=== PATIENT | female | born 1945 | race Caucasian/White ===

== ENCOUNTER 2016-06-19 08:44 | Day surgery (SDC) | payer MEDICARE, MEDICAID ==
--- NOTE | 2016-06-12 13:03 | HISTORY AND PHYSICAL E ---
History and Physical NAME: JENNI BETTENCOURT : 1945 AGE: 70Y ADMITTED: 06/19/2016 ROOM: ADMIT DATE: 06/19/2016 ATTENDING PHYSICIAN: Dr. Samson CHIEF COMPLAINT: Patient presented for colonoscopy. HISTORY OF PRESENT ILLNESS: I saw the patient in 2005 when she did have colon exam. PAST MEDICAL HISTORY: 1. Asthma. 2. Depression. 3. High cholesterol. She did have Whipple surgery with duodenectomy. She did have ERCP. She did have upper scope 2003 showing gastric polyps. The patient did have colorectal exam. I saw her 2005 when she had colonoscopy, polyps in the right colon, sessile polyp ascending colon. She did have multiple gastric polyps. The patient was seen again in 2007. She did have colonoscopy cecum 2 mm polyp and rectal polyps. The patient did have another scope 2007 upper scope. She did have gastric polyps. Patient was seen again 2012. Again, she did have high cholesterol, and she does have gastric polyps. In 2012, upper endoscopy. The last I saw the patient was 04/23. She does have history of colorectal polyps. FAMILY HISTORY: Her father of CA of the esophagus. Her mom with ascites. She does have history of familial polyposis. ALLERGIES: She is allergic to: 1. SULFA. 2. ASPIRIN. 3. BENADRYL. CONCLUSIONS: 1. Diverticulosis. 2. Colorectal polyps. PLAN: Colonoscopy. DICTATING PHYSICIAN: ANDIE PLASCENCIA M.D. [id number] PHY#: [id number] ID: [id number] JOB#: [id number] ACCT: [id number] cc:EMIGDIO SAMSON M.D., MAHMOUD M.D. >
[~2016-06-19 08:44] MED LIST: EPINEPHRINE INJ 1 MG/10 ML DISP.SYRIN ONE; FENTANYL CITRATE INJ/PF 100 MCG/2 ML AMPUL ONE; FLUMAZENIL INJ 0.5 MG/5 ML VIAL IV ONE; GLUCAGON,HUMAN RECOMB 1 MG INJ ONE; GLYCOPYRROLATE INJ 0.4 MG/2 ML VIAL ONE; LIDOCAINE 2% JELLY 30 ML TUBE ONE; MIDAZOLAM 2 MG/2 ML INJ ONE; NALOXONE HCL INJ/PF 0.4 MG/1 ML SDV ONE; ONDANSETRON HCL INJ/PF 4 MG/2 ML SDV ONE; PROMETHAZINE HCL INJ 25 MG/1 ML VIAL ONE
[2016-06-19] MEDS ORDERED: NA PHOS,M-B/NA PHOS,DI-BA (ADULT) 133 ML ENEMA PR ONE (08:54)
[2016-06-19 10:40] LABS: ABSOLUTE LYMPHOCYTES (AUTO) 0.7 10^3/uL (0.5-4.7); ABSOLUTE MONOCYTES (AUTO) 0.5 10^3/uL (0.1-1.4); ABSOLUTE NEUT (AUTO) 5.8 10^3/uL (1.7-8.2); BASOPHILS % (AUTO) 0.4 % (0-2); EOSINOPHILS % (AUTO) 0.4 % (0-6); HEMATOCRIT 41.5 % (36.0-47.0); HGB HCT DIFFERENCE -2.5; LYMPHOCYTES % (AUTO) 10.6 % (13-45); MEAN CORPUSCULAR HEMOGLOBIN 29.6 pg (27.0-33.4); MEAN CORPUSCULAR HGB CONC 31.4 g/dL (32.0-36.0); MEAN CORPUSCULAR VOLUME 94 fl (80-97); MONOCYTES % (AUTO) 6.4 % (3-13); RED BLOOD COUNT 4.41 10^6/uL (3.72-5.28); SEGMENTED NEUTROPHILS % (AUTO) 82.2 % (42-78); WHITE BLOOD COUNT 7.1 10^3/uL (4.0-10.5)
[2016-06-19 10:55] VITALS: BP 129/51
--- NOTE | 2016-06-19 12:57 | DISCHARGE SUMMARY E ---
Discharge Summary NAME: JENNI BETTENCOURT : 1945 AGE: 70Y ADMITTED: 06/19/2016 DISCHARGED: 06/19/2016 HISTORY: A 70-year-old female with a history of partial resection of the stomach, history of gastric polyps, history of Whipple resection secondary to sessile polyps in the duodenum. Patient underwent colonoscopy today showing polyp mid ascending colon inject, resect. She did have Whipple surgery in . Today's colon shows no evidence of cancer. She did have diverticulosis, diminutive polyps rectosigmoid and sessile polyp ascending colon. DISCHARGE PLAN: Consider upper scope. Consider followup colon scope 1 year with anesthesia standby in the OR. DICTATING PHYSICIAN: ANDIE PLASCENCIA M.D. [id number] PHY#: [id number] ID: [id number] JOB#: [id number] ACCT: [id number] cc:EMIGDIO SAMSON M.D., MAHMOUD M.D. >
--- NOTE | 2016-06-19 12:59 | OPERATIVE REPORT E ---
Operative Report NAME: JENNI BETTENCOURT : 1945 AGE: 70Y DATE OF SURGERY: 06/19/2016 ROOM: PREOPERATIVE DIAGNOSES: The patient is a 70-year-old female for colon screening, history of polyps. POSTOPERATIVE DIAGNOSES: 1. Sessile, 1 cm polyp in mid ascending colon, injected and resected. 2. Diminutive polyps extra-sigmoid. 3. Mild diverticulosis. FINDINGS: The patient had adhesions, redundant colon, difficult colonoscopy. Recommend followup colonoscopy after 9 months to a year in the OR with anesthesia standby regarding redundant colon and multiple polyps. OPERATION: Colonoscopy. SURGEON: ANDIE PLASCENCIA M.D. DESCRIPTION: Rectal exam: External hemorrhoids. Rectal/sigmoid: Diminutive polyps, 2 mm, too small to biopsy. Sigmoid: 2 mm polyp, mild diverticulosis. Transverse colon: Redundant. Ascending colon: Shows sessile polyp, mid ascending, injected, resected. No tissue available. Cecum: Normal. Scope withdrawn cecum, ascending, transverse, descending, and sigmoid, all the way to the rectum. CONCLUSION: 1. Redundant colon. 2. Difficult colonoscopy. PLAN: Recommend followup colonoscopy in 1 year in the OR, anesthesia standby. DICTATING PHYSICIAN: ANDIE PLASCENCIA M.D. [id number] PHY#: [id number] ID: [id number] JOB#: [id number] ACCT: [id number] cc:EMIGDIO SAMSON M.D., MAHMOUD M.D. >
== END 2016-06-19 10:55 | disposition home or self-care (01) ==
LOC: END 08:44
PROVIDERS: ATTEND Specialist
PROC: 3E0H8GC Introduction of Other Therapeutic Substance into Lower GI, Via Natural or Artificial Opening Endoscopic (ICD-10-PCS; principal; 2016-06-19 09:00)
PROC: 0DBK8ZX Excision of Ascending Colon, Via Natural or Artificial Opening Endoscopic, Diagnostic (ICD-10-PCS; 2016-06-19 09:00)
DX: D12.7 Benign neoplasm of rectosigmoid junction (principal); D12.2 Benign neoplasm of ascending colon; K64.4 Residual hemorrhoidal skin tags; R97.8 Other abnormal tumor markers; K57.30 Diverticulosis of large intestine without perforation or abscess without bleeding; J45.909 Unspecified asthma, uncomplicated; Z80.0 Family history of malignant neoplasm of digestive organs; E78.00 Pure hypercholesterolemia, unspecified; Z88.2 Allergy status to sulfonamides; Z88.6 Allergy status to analgesic agent; Z88.8 Allergy status to other drugs, medicaments and biological substances
CPT/HCPCS: 45385; 45381; 36415; 86301; 82962; 82378; 85025; J2250; J3010; A9270; J1610; J2405; J0171; J2310; J2550; J3490

== ENCOUNTER → 2016-06-25 | Outpatient (CLI) | payer MEDICARE, MEDICAID ==
[2016-06-25 15:14] LABS: ABSOLUTE LYMPHOCYTES (AUTO) 1.2 10^3/uL (0.5-4.7); ABSOLUTE MONOCYTES (AUTO) 0.7 10^3/uL (0.1-1.4); ABSOLUTE NEUT (AUTO) 5.1 10^3/uL (1.7-8.2); BASOPHILS % (AUTO) 0.3 % (0-2); EOSINOPHILS % (AUTO) 0.5 % (0-6); HEMATOCRIT 39.3 % (36.0-47.0); HEMOGLOBIN 12.7 g/dL (12.0-15.5); HGB HCT DIFFERENCE -1.2; MEAN CORPUSCULAR HGB CONC 32.3 g/dL (32.0-36.0); MEAN CORPUSCULAR VOLUME 93 fl (80-97); MONOCYTES % (AUTO) 9.9 % (3-13); RED BLOOD COUNT 4.24 10^6/uL (3.72-5.28); SEGMENTED NEUTROPHILS % (AUTO) 72.3 % (42-78)
== END ==
LOC: OD 14:17
PROVIDERS: ATTEND Specialist
DX: R10.9 Unspecified abdominal pain (principal)
CPT/HCPCS: 36415; 74000; 85025

== ENCOUNTER 2016-07-10 09:32 | Day surgery (SDC) | payer MEDICARE, MEDICAID ==
--- NOTE | 2016-07-07 15:34 | HISTORY AND PHYSICAL E ---
History and Physical NAME: JENNI BETTENCOURT : 1945 AGE: 70Y ADMITTED: 07/10/2016 ROOM: CHIEF COMPLAINT/HISTORY: History of gastric polyps. The patient did have an upper scope, 2012, found gastric duodenal surgery, history of polyps. The patient admitted for upper endoscopy surgery. 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 PAST MEDICAL HISTORY: 1. The patient has gastric polyps. 2. She does have a history of familial polyposis. 3. She does have prominent gastric folds, benign-looking gastric polyps. PAST SURGICAL HISTORY: 1. History of Whipple surgery. 2. Gastric bypass. MEDICATIONS: Nexium. SOCIAL HISTORY: She smokes. FAMILY HISTORY: Her father of CA of the esophagus. Mom with ascites. PHYSICAL EXAMINATION: VITAL SIGNS: Blood pressure 130/70, pulse 80, respirations 20, temp is 98. HEAD, EYES, EARS, NOSE, THROAT: Normal. NECK: Supple. LUNGS: Clear. ABDOMEN: Soft. NEUROLOGIC: Exam negative. ALLERGIES: She is allergic to PENICILLIN. CONCLUSION: 1. History of colon polyps. 2. History of Whipple surgery. 3. Familial polyposis. PLAN: Upper scope. Admit 07/10 DICTATING PHYSICIAN: ANDIE PLASCENCIA M.D. [id number] [id number] [facility]#: [id number] ID: [id number] JOB#: [id number] ACCT: [id number] cc:EMIGDIO SAMSON M.D., MAHMOUD M.D. >
[~2016-07-10 09:32] MED LIST changes: -GLUCAGON,HUMAN RECOMB 1 MG INJ ONE; -LIDOCAINE 2% JELLY 30 ML TUBE ONE
[2016-07-10] MEDS ORDERED: GLUCAGON,HUMAN RECOMB 1 MG INJ ONE (10:15)
--- NOTE | 2016-07-10 11:03 | DISCHARGE SUMMARY E ---
Discharge Summary NAME: JENNI BETTENCOURT : 1945 AGE: 70Y ADMITTED: 07/10/2016 DISCHARGED: HISTORY: A 70-year-old female with a history of gastric polyps, familial polyposis, had a recent colonoscopy and she did have adenoma, polyp resected. Today's upper endoscopy shows no evidence of malignancy. No evidence of cancer. She did have prominent gastric folds and esophageal varies, mild-moderate in the mid and proximal esophagus, prominent gastric folds with marked gastritis, duodenitis. ALLERGIES: 1. PENICILLIN. 2. LITHIUM. DISCHARGE PLAN: Awaiting biopsy results, lab studies. Hold aspirin for a week. Consider followup upper endoscopy in 1 year. DICTATING PHYSICIAN: ANDIE PLASCENCIA M.D. [id number] PHY#: [id number] ID: [id number] JOB#: [id number] ACCT: [id number] cc:Nikhil ARMENTA M.D. >
[2016-07-10 11:35] VITALS: BP 129/60
[2016-07-10 11:56] LABS: ABSOLUTE BASOPHILS # (AUTO) 0.1 10^3/uL (0.0-0.2); ABSOLUTE LYMPHOCYTES (AUTO) 0.9 10^3/uL (0.5-4.7); ABSOLUTE MONOCYTES (AUTO) 0.5 10^3/uL (0.1-1.4); ABSOLUTE NEUT (AUTO) 6.7 10^3/uL (1.7-8.2); BASOPHILS % (AUTO) 0.7 % (0-2); EOSINOPHILS % (AUTO) 0.6 % (0-6); HEMATOCRIT 39.1 % (36.0-47.0); HEMOGLOBIN 13.1 g/dL (12.0-15.5); HGB HCT DIFFERENCE 0.2; LYMPHOCYTES % (AUTO) 11.4 % (13-45); MEAN CORPUSCULAR HEMOGLOBIN 30.4 pg (27.0-33.4); MEAN CORPUSCULAR HGB CONC 33.4 g/dL (32.0-36.0); MEAN CORPUSCULAR VOLUME 91 fl (80-97); MONOCYTES % (AUTO) 6.6 % (3-13); RED CELL DISTRIBUTION WIDTH 15.2 % (11.5-14.0); SEGMENTED NEUTROPHILS % (AUTO) 80.7 % (42-78); WHITE BLOOD COUNT 8.3 10^3/uL (4.0-10.5)
--- NOTE | 2016-07-10 12:08 | OPERATIVE REPORT E ---
Operative Report NAME: JENNI BETTENCOURT : 1945 AGE: 70Y DATE OF SURGERY: 07/10/2015 ROOM: PREOPERATIVE DIAGNOSES: 1. 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 2. Familial polyposis. POSTOPERATIVE DIAGNOSES: 1. History of Whipple's disease. 2. Familial polyposis. 3. History of gastric polyps. PROCEDURES: 1. Esophagoscopy. 2. Gastroscopy. 3. Duodenoscopy. SURGEON: ANDIE PLASCENCIA M.D. TISSUE REMOVED OR ALTERED: Gastric biopsy from the antrum for H. pylori. ANESTHESIA: 1. Versed 2 mg. 2. Fentanyl 50 mcg. DESCRIPTION OF PROCEDURE: Baby scope passed under guided vision, no difficulties. ESOPHAGOSCOPY: Junction at 36 cm. Mid and proximal esophagus shows mild to moderate varices. No sign of bleeding. No significant of malignancy. No sign of polyps. GASTROSCOPY: Prominent gastric folds in the fundus. Prepyloric area shows erythema and prominent folds. Biopsy obtained. DUODENOSCOPY: Duodenal bulb shows mild duodenitis. Anastomoses of the Whipple was visualized, shows no evidence of polyps or malignancy. CONCLUSION: 1. Prominent gastric folds proximally. 2. Distal gastritis. 3. 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 DISCHARGE PLAN: 1. Soft diet. 2. Hold aspirin and nonsteroidals for a week. 3. I will obtain CA 19-9, CEA, and CBC. 4. Consider followup upper endoscopy in 1 year. DICTATING PHYSICIAN: ANDIE PLASCENCIA M.D. [id number] PHY#: [id number] ID: [id number] JOB#: [id number] ACCT: [id number] cc:EMIGDIO SAMSON M.D., MAHMOUD M.D. >
== END 2016-07-10 11:50 | disposition home or self-care (01) ==
LOC: END 09:32
PROVIDERS: ATTEND Specialist
PROC: 0DB68ZX Excision of Stomach, Via Natural or Artificial Opening Endoscopic, Diagnostic (ICD-10-PCS; principal; 2016-07-10 10:00)
DX: K31.9 Disease of stomach and duodenum, unspecified (principal); K63.89 Other specified diseases of intestine; I85.00 Esophageal varices without bleeding; K29.80 Duodenitis without bleeding; R97.8 Other abnormal tumor markers; F17.210 Nicotine dependence, cigarettes, uncomplicated; Z88.0 Allergy status to penicillin; Z88.8 Allergy status to other drugs, medicaments and biological substances; Z79.899 Other long term (current) drug therapy; Z98.84 Bariatric surgery status
CPT/HCPCS: 43239; 36415; 86301; 82962; 82378; 85025; 88342 ×2; 88305 ×2; J2250; J3010; J1610; J2405; J0171; J2310; J2550; J3490

== ENCOUNTER → 2016-08-12 | Outpatient (CLI) | payer MEDICARE, MEDICAID | LOC: WI 12:48 | PROVIDERS: ATTEND Internal Medicine | DX: Z12.31 Encounter for screening mammogram for malignant neoplasm of breast (principal) | CPT/HCPCS: 77067; G0202 ==

== ENCOUNTER 2016-12-06 13:21 | Day surgery (SDC) | payer MEDICARE, MEDICAID ==
[~2016-12-06 13:21] MED LIST changes: +DEXAMETHASONE SOD PHOSPHATE INJ 4 MG/1 ML VIAL ONE; -EPINEPHRINE INJ 1 MG/10 ML DISP.SYRIN ONE; -FENTANYL CITRATE INJ/PF 100 MCG/2 ML AMPUL ONE; -FLUMAZENIL INJ 0.5 MG/5 ML VIAL IV ONE; +LIDOCAINE 2% INJ-PF (20 MG/ML) 10 ML AMPUL ONE; -MIDAZOLAM 2 MG/2 ML INJ ONE; -NALOXONE HCL INJ/PF 0.4 MG/1 ML SDV ONE; +NEOSTIGMINE METHYLSULFATE 10 MG/10 ML VIAL ONE; -ONDANSETRON HCL INJ/PF 4 MG/2 ML SDV ONE; -PROMETHAZINE HCL INJ 25 MG/1 ML VIAL ONE; +ROCURONIUM BROMIDE INJ 50 MG/5 ML VIAL IV ONE; +SUCCINYLCHOLINE CHLORIDE INJ 200 MG/10 ML VIAL ONE
--- NOTE | 2016-12-06 14:09 | ER Document Report ---
ED GI/ - General Chief Complaint: Abdominal Pain Stated Complaint: LEFT FLANK PAIN Time Seen by Provider: 12/06/16 13:54 Mode of Arrival: Ambulatory Information source: Patient TRAVEL OUTSIDE OF THE [place] IN LAST 30 DAYS: No - HPI Patient complains to provider of: Diarrhea, Other - groin pain/swelling Onset: This morning Timing/Duration: Sudden Quality of pain: Achy Severity at maximum: Moderate Severity in ED: Moderate Pain Level: 3 Location: Other - left inguinal Associated symptoms: Diarrhea Exacerbated by: Denies Relieved by: Denies Similar symptoms previously: No Recently seen / treated by doctor: No Notes: 12/06/16 16:51 71-year-old female who presents to the emergency room complaining of diarrhea that started this morning with a new swollen area in her left inguinal area that she noted shortly after having a bowel movement, it is painful, she denies any blood in her stools, no nausea or vomiting, no dysuria or hematuria, no fever, no history of similar symptoms previously - Related Data Allergies/Adverse Reactions: Penicillins Allergy (Unknown, Verified 12/06/16 13:26) lithium Adverse Reaction (Intermediate, Verified 12/06/16 13:26) vomiting, severe headach, diarrhea Home Medications: Current Home Medications Albuterol Sulfate [Ventolin HFA MDI 18 GM] 2 puff IH Q4HP PRN 12/06/16 [History] Amantadine HCl [Amantadine] 100 mg PO Q12 12/06/16 [History] Atorvastatin Calcium [Lipitor 20 mg Tablet] 20 mg PO QHS 12/06/16 [History] Canagliflozin/Metformin HCl [Invokamet 50-500 mg Tablet] 1 tab PO BIDACBS [History] Divalproex Sodium [Divalproex Sodium ER] 1,000 mg PO DAILY 12/06/16 [History] Esomeprazole Mag Trihydrate [Nexium] 40 mg PO DAILY 12/06/16 [History] Invega Sustenna 117mg/ 0.75ml 117 mg IM [id number] 12/06/16 [History] Coni Camron Mouthwash (Hydrocortisone, Lidocaine, Benadryl, Nystatin, Tetracycline) 5 ml PO QID 12/06/16 [History] Paliperidone [Invega 6 Mg Tab.Er] 6 mg PO QHS 12/06/16 [History] Ramipril [Altace 2.5 mg Capsule] 2.5 mg PO DAILY 12/06/16 [History] Sitagliptin Phosphate [Januvia 50 mg Tablet] 50 mg PO BID 12/06/16 [History] Past Medical History - General Information source: Patient - Social History Smoking Status: Current Every Day Smoker Chew tobacco use (# tins/day): No Frequency of alcohol use: None Drug Abuse: None Family History: None Patient has suicidal ideation: No Patient has homicidal ideation: No - Past Medical History Cardiac Medical History: Denies: Hx Coronary Artery Disease, Hx Heart Attack, Hx Hypertension Pulmonary Medical History: Reports: Hx Asthma Denies: Hx Bronchitis, Hx COPD, Hx Pneumonia Neurological Medical History: Denies: Hx Cerebrovascular Accident, Hx Seizures Endocrine Medical History: Reports: Hx Diabetes Mellitus Type 2 Renal/ Medical History: Denies: Hx Peritoneal Dialysis GI Medical History: Denies: Hx Hepatitis, Hx Hiatal Hernia, Hx Ulcer Musculoskeltal Medical History: Reports Hx Arthritis - HANDS AND LEGS Psychiatric Medical History: Reports: Hx Bipolar Disorder Infectious Medical History: Denies: Hx Hepatitis Past Surgical History: Reports: Hx Appendectomy, Hx Genitourinary Surgery - bladder, Hx Hysterectomy. Denies: Hx Mastectomy, Hx Open Heart Surgery, Hx Pacemaker - Immunizations Hx Diphtheria, Pertussis, Tetanus Vaccination: Yes Hx Pneumococcal Vaccination: 04/30/16 Review of Systems - Review of Systems Constitutional: No symptoms reported EENT: No symptoms reported Cardiovascular: No symptoms reported Respiratory: No symptoms reported Gastrointestinal: See HPI Genitourinary: No symptoms reported Female Genitourinary: No symptoms reported Musculoskeletal: No symptoms reported Skin: No symptoms reported Hematologic/Lymphatic: No symptoms reported Neurological/Psychological: No symptoms reported -: Yes All other systems reviewed and negative Physical Exam - Vital signs Vitals: Temp Pulse Resp BP Pulse Ox 98.4 F 85 18 133/59 H 96 12/06/16 13:26 12/06/16 13:26 12/06/16 13:26 12/06/16 13:26 12/06/16 13:26 Interpretation: Normal - General General appearance: Appears well, Alert - HEENT Head: Normocephalic, Atraumatic Eyes: Normal Pupils: PERRL - Respiratory Respiratory status: No respiratory distress Chest status: Nontender Breath sounds: Normal Chest palpation: Normal - Cardiovascular Rhythm: Regular Heart sounds: Normal auscultation Murmur: No - Abdominal Distension: No distension Bowel sounds: Normal Organomegaly: No organomegaly Notes: 5 x 8 cm area of swelling in the left inguinal crease, tender to palpate, positive bowel sounds present, nonreducible - Back Back: Normal, Nontender - Extremities General upper extremity: Normal inspection, Nontender, Normal color, Normal ROM , Normal temperature General lower extremity: Normal inspection, Nontender, Normal color, Normal ROM , Normal temperature, Normal weight bearing. No: Gloria's sign - Neurological Neuro grossly intact: Yes Cognition: Normal Orientation: AAOx4 [place] Coma Scale Eye Opening: Spontaneous [place]adira Coma Scale Verbal: Oriented [place] Coma Scale Motor: Obeys Commands Yadira Coma Scale Total: 15 Speech: Normal Motor strength normal: LUE, RUE, LLE, RLE Sensory: Normal - Psychological Associated symptoms: Normal affect, Normal mood - Skin Skin Temperature: Warm Skin Moisture: Dry Skin Color: Normal Course - Re-evaluation Re-evalutation: 12/06/16 16:52 Patient was seen and evaluated by Dr. Bermudez, general surgeon, who agrees that patient has an incarcerated inguinal hernia, he will admit patient and take to the OR for repair, this plan was discussed with patient who is in agreement as well - Vital Signs Vital signs: Temp Pulse Resp BP Pulse Ox 98 F 71 16 151/63 H 96 12/06/16 15:38 12/06/16 15:38 12/06/16 15:38 12/06/16 15:38 12/06/16 15:38 - Laboratory Result Diagrams: 12/06/16 14:36 12/06/16 14:36 Laboratory results interpreted by me: 12/06/16 12/06/16 12/06/16 14:27 14:36 14:36 RDW 14.6 H Sodium 136.5 L Glucose 139 H Urine Glucose (UA) >=500 H Urine Ketones 20 H - Diagnostic Test Radiology reviewed: Image reviewed, Reports reviewed - EKG Interpretation by Me EKG shows normal: Sinus rhythm Rate: Normal Rhythm: NSR - Consults Dr Bajwa Time consulted: 14:08 Reason for consultation: 12/06/16 14:08 left inguinal hernia Consulted provider: will come to ER - Transfer of Care Care transferred to following provider: Dr Bermudez Discharge - Discharge Clinical Impression: Incarcerated inguinal hernia, unilateral Condition: Stable Disposition: ADMITTED INPATIENT Admitting Provider: Surgicalist Unit Admitted: Surgical Floor
[2016-12-06 15:00] LABS: ABSOLUTE BASOPHILS # (AUTO) 0.1 10^3/uL (0.0-0.2); ABSOLUTE LYMPHOCYTES (AUTO) 1.4 10^3/uL (0.5-4.7); ABSOLUTE MONOCYTES (AUTO) 0.6 10^3/uL (0.1-1.4); ABSOLUTE NEUT (AUTO) 5.1 10^3/uL (1.7-8.2); BASOPHILS % (AUTO) 0.7 % (0-2); EOSINOPHILS % (AUTO) 0.6 % (0-6); HEMOGLOBIN 13.7 g/dL (12.0-15.5); HGB HCT DIFFERENCE 0.1; LYMPHOCYTES % (AUTO) 19.9 % (13-45); MEAN CORPUSCULAR HEMOGLOBIN 31.1 pg (27.0-33.4); MEAN CORPUSCULAR HGB CONC 33.4 g/dL (32.0-36.0); MEAN CORPUSCULAR VOLUME 93 fl (80-97); MONOCYTES % (AUTO) 8.3 % (3-13); RED BLOOD COUNT 4.41 10^6/uL (3.72-5.28); RED CELL DISTRIBUTION WIDTH 14.6 % (11.5-14.0); SEGMENTED NEUTROPHILS % (AUTO) 70.5 % (42-78); WHITE BLOOD COUNT 7.2 10^3/uL (4.0-10.5)
[2016-12-06 15:00] LABS: APPEARANCE,URINE CLEAR; BILIRUBIN,URINE NEGATIVE (NEGATIVE); GLUCOSE, URINE >=500 mg/dL (NEGATIVE); KETONES,URINE 20 mg/dL (NEGATIVE); LEUKOCYTE ESTERASE,URINE NEGATIVE (NEGATIVE); NITRITE,URINE NEGATIVE (NEGATIVE); PROTEIN,URINE NEGATIVE (NEGATIVE); UROBILINOGEN,URINE NEGATIVE mg/dL (<2.0)
[2016-12-06 15:04] LABS: PROTHROMBIN TIME 12.9 SEC (11.4-15.4)
[2016-12-06 15:05] LABS: PARTIAL THROMBOPLASTIN TIME 29.7 SEC (23.5-35.8)
[2016-12-06 15:15] LABS: ALANINE AMINOTRANSFERASE 25 U/L (9-52); ALBUMIN 4.2 g/dL (3.5-5.0); ALKALINE PHOSPHATASE 70 U/L (38-126); ANION GAP 11 (5-19); ASPARTATE AMINO TRANSFERASE 21 U/L (14-36); BILIRUBIN,DIRECT 0.3 mg/dL (0.0-0.4); BILIRUBIN,TOTAL 0.5 mg/dL (0.2-1.3); BLOOD UREA NITROGEN 19 mg/dL (7-20); CALCIUM 9.5 mg/dL (8.4-10.2); CARBON DIOXIDE 27 mmol/L (22-30); CHLORIDE 99 mmol/L (98-107); CREATININE RESULT 0.55 mg/dL (0.52-1.25); GLUCOSE 139 mg/dL (75-110); POTASSIUM 4.2 mmol/L (3.6-5.0); SODIUM 136.5 mmol/L (137-145); TOTAL PROTEIN 7.3 g/dL (6.3-8.2)
--- NOTE | 2016-12-06 15:43 | HISTORY AND PHYSICAL E ---
History and Physical NAME: JENNI BETTENCOURT : 1945 AGE: 71Y ADMITTED: 12/06/2016 ROOM: ED08 CHIEF COMPLAINT: Abdominal pains with a lump in the left groin. HISTORY OF PRESENT ILLNESS: This is a 71-year-old female who had diarrhea after lunch and then noted a pop in the left groin. She went to the emergency room and noted to have a left inguinal hernia which the patient said she never had it before. She does not have pain in the groin unless pressure is applied. The ER doctor, *------*, tried to reduce it but was unable to do so. I also tried to reduce it in the ER, again unable to reduce it. PAST MEDICAL HISTORY: 1. History of Whipple procedure around 20 years ago in [facility] which she survived until now. 2. She also had a hysterectomy. 3. History of depression and takes medications prescribed by a psychiatrist. 4. She is a diabetic. ALLERGIES: None known. SOCIAL HISTORY: Denies smoking or drinking or drug use. REVIEW OF SYSTEMS: As in HPI. Complaining of some abdominal discomfort, more of like gurgling sounds. Tenderness in the left groin on attempting to reduce the hernia. She denies any nausea or vomiting. Positive diarrhea. However, she usually takes a laxative because of constipation. Denies any chest pain, shortness of breath, nor dysuria. Rest of the systems reviewed and unremarkable. FAMILY HISTORY: Noncontributory. PHYSICAL EXAMINATION: GENERAL: Well-developed, well-nourished, 71-year-old female, alert, oriented with no left groin pain unless it is touched. HEENT: Neck is supple. No thyromegaly. LUNGS: Clear. HEART: Regular sinus rhythm. ABDOMEN: Soft and nontender. GROIN: In the groin, there is a lump on the left groin that I am not able to reduce. IMPRESSION: Incarcerated left inguinal hernia. PLAN: 1. Keep her NPO and hydrate. 2. To OR for reduction and repair of the hernia with possible use of mesh and possible bowel resection. DICTATING PHYSICIAN: JOSE L GUERIN M.D. [id number] PHY#: [id number] ID: [id number] JOB#: [id number] ACCT: [id number] cc:JOSE L GUERIN M.D. >
--- NOTE | 2016-12-06 15:53 | RADIOLOGY REPORT (SQ) ---
EXAM DESCRIPTION: ACUTE ABDOMEN SERIES COMPLETED DATE/TIME: 12/06/2016 3:39 pm REASON FOR STUDY: pain COMPARISON: None. NUMBER OF VIEWS: Three views. TECHNIQUE: PA chest, supine abdomen and upright/decubitus abdomen radiographic images acquired. LIMITATIONS: None. FINDINGS: CHEST: Lungs clear of infiltrates. FREE AIR: None. No abnormal gas collections. BOWEL GAS PATTERN: Few scattered small bowel loops with air fluid levels. No distended large or small bowel loops. CALCIFICATIONS: No suspicious calcifications. HARDWARE: None in the abdomen. SOFT TISSUES: No gross mass or suggestion of organomegaly. BONES: No acute fracture. No worrisome bone lesions. OTHER: No other significant finding. IMPRESSION: NONSPECIFIC BOWEL GAS PATTERN WITHOUT EVIDENCE FOR OBSTRUCTION. TECHNICAL DOCUMENTATION: JOB ID: [id number] [employer]- All Rights Reserved
[2016-12-06] MEDS ORDERED: HYDROMORPHONE HCL INJ/PF 2 MG/ML AMPULE ONE (15:54)
[2016-12-06] MEDS ORDERED: MIDAZOLAM 2 MG/2 ML INJ ONE (15:54)
[2016-12-06] MEDS ORDERED: FENTANYL CITRATE INJ/PF 100 MCG/2 ML AMPUL ONE (15:54)
[2016-12-06] MEDS ORDERED: ACETAMINOPHEN 100 ML IV ONE (15:55)
[2016-12-06] MEDS ORDERED: PROPOFOL INJ 200 MG/20 ML VIAL IV ONE (15:55)
[2016-12-06] MEDS ORDERED: CEFAZOLIN INJ 1 GM VIAL ONE (16:06)
--- NOTE | 2016-12-06 16:35 | EKG REPORT ---
SEVERITY:- ABNORMAL ECG - SINUS RHYTHM CONSIDER ANTEROSEPTAL INFARCT : Confirmed by: Terri Askew 06-Dec-2016 16:35:13
[2016-12-06] MEDS ORDERED: OXYCODONE-ACETAMINOPHEN 5-325 MG TABLET PO PRN (16:56)
[2016-12-06] MEDS ORDERED: MORPHINE SULFATE 10 MG/ML INJ IV PRN ×2 (16:56→17:45)
[2016-12-06] MEDS ORDERED: PROMETHAZINE HCL INJ 25 MG/1 ML VIAL IV PRN (16:56)
[2016-12-06] MEDS ORDERED: DIPHENHYDRAMINE HCL 50 MG/ML VIAL IV PRN (16:56)
[2016-12-06] MEDS ORDERED: FENTANYL CITRATE INJ/PF 100 MCG/2 ML AMPUL IV PRN ×3 (16:56)
[2016-12-06] MEDS ORDERED: MEPERIDINE HCL/PF INJ 25 MG/1 ML DISP.SYRIN IV PRN (16:56)
[2016-12-06] MEDS ORDERED: NALOXONE HCL INJ/PF 0.4 MG/1 ML SDV ONE (17:03)
[2016-12-06] MEDS ORDERED: MORPHINE SULFATE 10 MG/ML INJ INJ ONE (17:20)
[2016-12-06] MEDS ORDERED: ONDANSETRON HCL INJ/PF 4 MG/2 ML SDV ONE (17:28)
[2016-12-06] MEDS ORDERED: MORPHINE SULFATE 10 MG/ML INJ ONE (17:28)
[2016-12-06] MEDS ORDERED: ALBUTEROL SULFATE HFA (90 MCG/PUFF) 200 PUFF/8.5 GM MDI IH PRN (17:49)
[2016-12-06] MEDS ORDERED: INVEGA SUSTENNA IM SCH (18:00)
[2016-12-06] MEDS: NYSTATIN/DEXAMETH/DIPHEN SUSP 120 ML PO SCH ×2 (20:04→21:59)
[2016-12-06] MEDS ORDERED: DEXTROSE 40% GEL 15 GM TUBE X 2 PO PRN (21:35)
[2016-12-06] MEDS ORDERED: DEXTROSE 40% GEL 15 GM TUBE PO PRN (21:35)
[2016-12-06] MEDS ORDERED: DEXTROSE 50%-WATER SYRINGE 12.5 GM/25 ML DOSE IV PRN (21:35)
[2016-12-06] MEDS ORDERED: DEXTROSE 50%-WATER SYRINGE 25 GM/50 ML DOSE IV PRN (21:35)
[2016-12-06] MEDS ORDERED: INSULIN LISPRO 100 UNIT/ML 3 ML VIAL SUBCUT PRN (21:35)
[2016-12-06] MEDS ORDERED: GLUCAGON,HUMAN RECOMB 1 MG INJ IM PRN (21:35)
[2016-12-06] MEDS: ONDANSETRON HCL INJ/PF 4 MG/2 ML SDV IV PRN (21:56)
[2016-12-06] MEDS ORDERED: PALIPERIDONE 6 MG TAB.ER.24 PO SCH (22:00)
[2016-12-06] MEDS ORDERED: ATORVASTATIN CALCIUM 20 MG TABLET PO SCH (22:00)
[2016-12-06] MEDS ORDERED: AMANTADINE HCL 100 MG CAPSULE PO ONE (22:12)
[2016-12-06] MEDS ORDERED: PALIPERIDONE 6 MG TAB.ER.24 PO ONE (22:12)
[2016-12-06] MEDS: AMANTADINE HCL 100 MG CAPSULE PO SCH (22:21)
[2016-12-06] MEDS: OXYCODONE-ACETAMINOPHEN 5-325 MG TABLET PO PRN (22:58)
[2016-12-06] MEDS: CEFAZOLIN 1 GM/D5W RTU 1 GM/50 ML RTUPB IV SCH (23:01)
[2016-12-07] MEDS: OXYCODONE-ACETAMINOPHEN 5-325 MG TABLET PO PRN ×2 (03:30→09:46)
[2016-12-07] MEDS: ONDANSETRON HCL INJ/PF 4 MG/2 ML SDV IV PRN (04:34)
[2016-12-07] MEDS ORDERED: METFORMIN HCL PO SCH (08:00)
[2016-12-07] MEDS ORDERED: CANAGLIFLOZIN PO SCH (08:00)
[2016-12-07] MEDS ORDERED: SITAGLIPTIN PHOSPHATE 50 MG TABLET PO SCH (08:00)
[2016-12-07] MEDS ORDERED: LANSOPRAZOLE 30 MG TAB.RAP.DR PO SCH (08:00)
[2016-12-07 08:40] VITALS: BP 115/55
[2016-12-07] MEDS: NYSTATIN/DEXAMETH/DIPHEN SUSP 120 ML PO SCH (09:43)
[2016-12-07] MEDS: AMANTADINE HCL 100 MG CAPSULE PO SCH (09:45)
[2016-12-07] MEDS: CEFAZOLIN 1 GM/D5W RTU 1 GM/50 ML RTUPB IV SCH (09:48)
[2016-12-07] MEDS ORDERED: RAMIPRIL 2.5 MG CAPSULE PO SCH (10:00)
--- NOTE | 2016-12-07 10:03 | OPERATIVE REPORT E ---
Operative Report NAME: JENNI BETTENCOURT : 1945 AGE: 71Y DATE OF SURGERY: 12/06/2016 ROOM: 406 PREOPERATIVE DIAGNOSIS: Incarcerated left inguinal hernia. POSTOPERATIVE DIAGNOSIS: Incarcerated left femoral hernia. OPERATION: Reduction of incarcerated left femoral hernia and repair with mesh plug. SURGEON: JOSE L GUERIN M.D. ANESTHESIA: General. INDICATION: This is a 71-year-old female who noted lump in the left groin around noontime after having a bowel movement. She claimed it was diarrhea but she said she strained. She never had this before. DESCRIPTION OF PROCEDURE: After adequate general anesthesia, the left groin and lower abdomen were prepped and draped in the usual sterile fashion. A left inguinal incision made just above the palpated lump. The subcu was then dissected with cautery and sack was then identified. This was then dissected down to the defect. The defect appears to be just below the inguinal ligament. The defect was just over 1 cm and it needed to be enlarged laterally by dividing the fascia just below the inguinal ligament to about 0.5 cm. The hernia sac which was dusky was then opened and there was primarily omentum underneath and a piece of small bowel that looked viable. DICTATION ENDS HERE DICTATING PHYSICIAN: JOSE L GUERIN M.D. [id number] PHY#: [id number] ID: [id number] JOB#: [id number] ACCT: [id number] cc:JOSE L GUERIN M.D. >
[2016-12-07] MEDS ORDERED: DIVALPROEX SODIUM 500 MG TAB.SR.24H PO SCH (11:00)
--- NOTE | 2017-01-07 12:32 | DISCHARGE SUMMARY E ---
Discharge Summary NAME: JENNI BETTENCOURT : 1945 AGE: 71Y ADMITTED: 12/06/2016 DISCHARGED: 12/07/2016 FINAL DIAGNOSIS: Incarcerated left femoral hernia. PROCEDURE DONE: Reduction of incarcerated left femoral hernia and repair with mesh plug on 12/06/[address] Bermudez. HOSPITAL COURSE: This is a 71-year-old female who noted a lump in the left groin several hours prior to coming to the emergency room on 12/06/2016. She was noted to have an incarcerated left femoral hernia that was unable to be reduced in the emergency room. She then underwent a repair of femoral hernia with mesh plug and reduction of the incarcerated hernia on 12/06/2016. Postoperatively, patient did well and discharged improve on 12/07/2016 with above final diagnosis. Patient advised not to do any lifting more than 10 pounds for the next 2 weeks or until seen in the surgical clinic in about 2 weeks. She can have regular diet. Prescription for pain medication was given. DICTATING PHYSICIAN: JOSE L BERMUDEZ M.D. [id number] PHY#: [id number] ID: [id number] JOB#: [id number] ACCT: [id number] cc:JOSE L BERMUDEZ M.D. >
== END 2016-12-07 10:15 | disposition home or self-care (01) ==
LOC: ER 13:21 → EH 15:07 → UNDOADMIN 15:07 → 4N 18:17 → EH 18:17 → OROUT 18:29 → UNDOADMIN 18:29 → 4N 18:29 → EH 18:29 → 4N 18:29 → UNDODISIN 12-07 10:15 → OROUT 12-07 10:15
PROVIDERS: ATTEND Surgery
PROC: 0YU60JZ Supplement Left Inguinal Region with Synthetic Substitute, Open Approach (ICD-10-PCS; principal; 2016-12-06 15:45)
DX: K40.30 Unilateral inguinal hernia, with obstruction, without gangrene, not specified as recurrent (principal); F32.9 Major depressive disorder, single episode, unspecified; E11.9 Type 2 diabetes mellitus without complications; J45.909 Unspecified asthma, uncomplicated; I25.10 Atherosclerotic heart disease of native coronary artery without angina pectoris; M19.90 Unspecified osteoarthritis, unspecified site; F17.210 Nicotine dependence, cigarettes, uncomplicated; Z79.899 Other long term (current) drug therapy; Z90.710 Acquired absence of both cervix and uterus
CPT/HCPCS: 93005; 99285; 36415; 87086; 82962 ×2; 85025; 85610; 85730; 80053; 81001; 88302 ×2; 74022; 93010; 49507; C1781; A9270 ×8; J2250; J0690 ×2; J3490 ×2; J1100; J3010; J2270; J1170; J0330; J2405 ×2; J2704; J0131; 830; J2310

== ENCOUNTER → 2017-07-15 | Outpatient (CLI) | payer MEDICARE, MEDICAID ==
--- NOTE | 2017-07-16 18:13 | WOMENS IMAGING REPORT ---
EXAM DESCRIPTION: 3D SCREENING MAMMO BILAT COMPLETED DATE/TIME: 07/15/2017 1:39 pm REASON FOR STUDY: ROUTINE SCREENING;Z12.31 Z12.31 ENCNTR SCREEN MAMMOGRAM FOR MALIGNANT NEOPLASM OF VIRGILIO COMPARISON: Multiple since 2008 TECHNIQUE: Standard craniocaudal and mediolateral oblique views of each breast recorded using digita l acquisition and breast tomosynthesis. LIMITATIONS: None. FINDINGS: Findings present which are benign by mammographic criteria. No suspicious masses, calcifi cations or architectural distortion. Pertinent benign findings: Stable benign bilateral breast parenchymal calcifications. Right and left breast stereotactic biopsy clips are present Read with the assistance of CAD. .[facility] - R2 Cenova Version 1.3 .[facility] - R2 Cenova Version 1.3 .[facility] - R2 Cenova Version 2.4 .[facility] [place] R2 Cenova Version 2.4 .[facility] - R2 Notching Machine Operator Version 9.2 Benign mammographic findings may include one or more of the following: Smooth masses, popcorn/rim/co arse calcifications, asymmetries, post-procedure changes, and lesions with long-standing stability. IMPRESSION: BENIGN MAMMOGRAPHIC FINDINGS. BIRADS 2 BREAST DENSITY: b. There are scattered areas of fibroglandular density. BIRAD: 2 BENIGN FINDING(S) RECOMMENDATION: RECOMMENDATION: ROUTINE SCREENING Please continue bilateral screening tomosynthesis in July 2018 COMMENT: The patient has been notified of the results by letter per MQSA requirements. Additional no tification policies are in place for contacting patient with suspicious or incomplete findings. Quality ID #225: The [employer] recommends an annual screening mammogram for women aged 40 years or over. This facility utilizes a reminder system to ensure that all patients receive reminder letters, and/or direct phone calls for appointments. This includes reminders for routine scr eening mammograms, diagnostic mammograms, or other Breast Imaging Interventions when appropriate. Th is patient will be placed in the appropriate reminder system. The [employer] (ACR) has developed recommendations for screening MRI of the breast s in certain patient populations, to be used in conjunction with mammography. Breast MRI surveillanc e may be appropriate for women with more than 20% lifetime risk of developing breast cancer as deter mined by genetic testing, significant family history of the disease, or history of mantle radiation f or Hodgkins Disease. ACR Practice Guidelines 2008. DBT Technology DBT is a type of tomographic mammography. With conventional mammography, overlapping breast tissue ma y make lesions difficult to detect, even with good compression. DBT uses an x-ray tube that rotates a round the breast, taking images at different angles. These images are then combined to create thin sl ices of the breast that the radiologist can view as a 3D reconstruction. The Hologic unit can perform full-field digital mammograms (2D imaging); or DBT (3D imaging); or both, in a combination mode that quickly performs both the mammogram and the tomosynthesis scan while the breast is still compressed. PQRS 6045F: Fluoroscopic imaging is not utilized for breast tomosynthesis. TECHNICAL DOCUMENTATION: FINDING NUMBER: (1) ASSESSMENT: (1) JOB ID: [id number] [employer]- All Rights Reserved
== END ==
LOC: WI 13:11
PROVIDERS: ATTEND Internal Medicine
DX: Z12.31 Encounter for screening mammogram for malignant neoplasm of breast (principal)
CPT/HCPCS: 77063; 77067

== ENCOUNTER → 2017-09-01 | Outpatient (CLI) | payer MEDICARE, MEDICAID ==
--- NOTE | 2017-09-01 14:37 | RADIOLOGY REPORT (SQ) ---
EXAM DESCRIPTION: CT LUNG CANCER SCREENING COMPLETED DATE/TIME: 09/01/2017 1:54 pm REASON FOR STUDY: NICOTINE DEPENDENCE (F17.210) F17.210 NICOTINE DEPENDENCE, CIGARETTES, UNCOMPLICA JULIO CÉSAR Has the patient had a Chest CT scan within the past year? No Was the patient offered tobacco cessation counseling? Yes Was the patient engaged in shared decision making for this test? Yes Does the patient have signs or symptoms of Lung Cancer? No Is the patient a smoker? Yes How many packs per year? 365 How many years since quitting smoking? No Patients age: 71 COMPARISON: None. TECHNIQUE: Low Dose CT scan performed of the chest without intravenous contrast for purposes of scre ening for lung cancer. Images reviewed with lung, soft tissue and bone windows. Reconstructed coron al and sagittal MPR images reviewed. All images stored on PACS. All CT scanners at this facility use dose modulation, iterative reconstruction, and/or weight based d osing when appropriate to reduce radiation dose to as low as reasonably achievable (ALARA). [facility]: Dose Right [facility]: CareDose [facility]: Dose Right [facility]: Teradose 4D [facility]: [employer] RADIATION DOSE: CT Rad equipment meets quality standard of care and radiation dose reduction techniq ues were employed. CTDIvol: 1.9 mGy. DLP: 69 mGy-cm. mGy. . LIMITATIONS: No technical limitations. FINDINGS: LUNG NODULES: Description: 4 mm smooth round noncalcified nodule, just above the right h emidiaphragm on axial image 335/469. This most likely represents a noncalcified granuloma. Calcified benign granulomas at the right and left lung apices less than 3 mm in diameter, benign REMAINING LUNGS AND PLEURA: No pleural effusions or calcifications. No pneumothorax. No scarrin g or interstitial changes. HILAR AND MEDIASTINAL STRUCTURES: No identified masses. No abnormal nodes. HEART AND VASCULAR STRUCTURES: No aortic aneurysm. No pericardial effusion. Heavily calcified akosua l annulus. Moderate aortic valve calcification No cardiac devices. CORONARY ARTERY CALCIFICATIONS: Marked calcifications. UPPER ABDOMEN, THYROID, BONES, OTHER SOFT TISSUES: No significant findings. IMPRESSION: BENIGN FINDINGS IN THE LUNGS. Coronary artery calcifications. Calcified aortic valve and mitral annulus LUNGRADS: LUNGRADS: 2 BENIGN APPEARANCE OR BEHAVIOR. NODULES WITH A VERY LOW LIKELIHOOD OF BECOMING A CLINICALLY ACTIVE CANCER DUE TO SIZE OR LACK OF GROWTH. MODIFIER: NONE. RECOMMENDATION: Continue annual screening with LDCT in 12 months. COMMENT: CRITERIA: Solid nodule(s): < 6 mm; new < 4 mm. Part solid nodule(s): < 6 mm total diameter on baseline screening. Non solid nodule(s) (GGN): < 20 mm OR ? 20 and unchanged or slowly growing. Category 3 or 4 modules unchanged for ? 3 months. TECHNICAL DOCUMENTATION: JOB ID: [id number] Quality ID # [id number]: Final reports with documentation of one or more dose reduction techniques (e.g., Au tomated exposure control, adjustment of the mA and/or kV according to patient size, use of iterative reconstruction technique) 2010 [facility] Radiology Reading location - IP/workstation name: [email or web address]
== END ==
LOC: RAD 12:57
PROVIDERS: ATTEND Internal Medicine
DX: F17.210 Nicotine dependence, cigarettes, uncomplicated (principal)
CPT/HCPCS: G0297

== ENCOUNTER → 2018-04-22 | Outpatient (CLI) | payer MEDICARE, MEDICAID ==
--- NOTE | 2018-04-22 16:38 | RADIOLOGY REPORT (SQ) ---
EXAM DESCRIPTION: CT SOFT TISSUE NECK WITHOUT COMPLETED DATE/TIME: 04/22/2018 9:16 am REASON FOR STUDY: R22.1 LOCALIZED SWELLING, MASS AND LUMP, NECK R22.1 LOCALIZED SWELLING, MASS AND LUMP, NECK COMPARISON: None. TECHNIQUE: Noncontrast scanning from skull base through lung apices with review of bone, soft tissue and lung windows. Reconstructed coronal and sagittal MPR images reviewed. All images stored on PAC S. All CT scanners at this facility use dose modulation, iterative reconstruction, and/or weight based d osing when appropriate to reduce radiation dose to as low as reasonably achievable (ALARA). [facility]: Dose Right [facility]: CareDose [facility]: Dose Right [facility]: Teradose 4D [facility]: [employer] RADIATION DOSE: CT Rad equipment meets quality standard of care and radiation dose reduction techniq ues were employed. CTDIvol: 7.1 mGy. DLP: 215 mGy-cm. mGy. LIMITATIONS: None. FINDINGS: SKULL BASE: Intact. MAJOR SALIVARY GLANDS: No solid or cystic masses. No inflammatory changes. LYMPHADENOPATHY: No adenopathy. MUCOSAL MASSES OR ASYMMETRY: No mucosal masses or asymmetry. LARYNX/CORDS: No abnormal findings. LUNG APICES: Clear. BONES: Intact. THYROID: Normal size. No masses. PARANASAL SINUSES: Clear. OTHER: Surrounded in the left external auditory canal. Right external auditory canal unremarkable. Bilateral middle ear cavities and mastoids are clear. IMPRESSION: NO SIGNIFICANT FINDING IN THE SOFT TISSUES OF THE NECK. TECHNICAL DOCUMENTATION: JOB ID: [id number] Quality ID # [id number]: Final reports with documentation of one or more dose reduction techniques (e.g., Au tomated exposure control, adjustment of the mA and/or kV according to patient size, use of iterative reconstruction technique) 2010 [employer]- All Rights Reserved Reading location - IP/workstation name: [email or web address]
== END ==
LOC: RAD 08:46
PROVIDERS: ATTEND Internal Medicine
DX: R22.1 Localized swelling, mass and lump, neck (principal)
CPT/HCPCS: 70490

== ENCOUNTER 2018-07-01 14:34 | Inpatient (IN) | payer MEDICARE, MEDICAID ==
[2018-07-01] MEDS ORDERED: ASPIRIN 81 MG TABLET, CHEWABLE PO ONE (17:14)
[2018-07-01] MEDS ORDERED: CLOPIDOGREL BISULFATE 300 MG TABLET PO ONE (17:15)
[2018-07-01] MEDS ORDERED: NITROGLYCERIN/D5W 50 MG/250 ML RTUINJ IV PRN (17:16)
--- NOTE | 2018-07-01 17:22 | ER Document Report ---
HPI - HPI Patient complains to provider of: chest pain Pain Level: 2 Context: Pt. presents to the ED for a direct admit from Dr. Armenta for chest pain rule out. Pt. is currently having CP which started this morning. She presented to Dr. Clemente office who sent her to the ED with direct admit orders. PMH: DM, hyperlypidemia, HTN Meds: unknown Allergies: PCN, lithium - REPRODUCTIVE Reproductive: DENIES: : Past Medical History - General Information source: Patient, DrArthur Office - Social History Smoking Status: Unknown if Ever Smoked Family History: None Patient has suicidal ideation: No Patient has homicidal ideation: No - Past Medical History Cardiac Medical History: Denies: Hx Coronary Artery Disease, Hx Heart Attack, Hx Hypertension Pulmonary Medical History: Reports: Hx Asthma Denies: Hx Bronchitis, Hx COPD, Hx Pneumonia Neurological Medical History: Denies: Hx Cerebrovascular Accident, Hx Seizures Endocrine Medical History: Reports: Hx Diabetes Mellitus Type 2 Renal/ Medical History: Denies: Hx Peritoneal Dialysis GI Medical History: Denies: Hx Hepatitis, Hx Hiatal Hernia, Hx Ulcer Musculoskeletal Medical History: Reports Hx Arthritis - HANDS AND LEGS Psychiatric Medical History: Reports: Hx Bipolar Disorder, Hx Depression Infectious Medical History: Denies: Hx Hepatitis Past Surgical History: Reports: Hx Appendectomy, Hx Genitourinary Surgery - bladder, Hx Hysterectomy. Denies: Hx Mastectomy, Hx Open Heart Surgery, Hx Pacemaker - Immunizations Hx Diphtheria, Pertussis, Tetanus Vaccination: Yes Hx Pneumococcal Vaccination: 04/30/16 Vertical Provider Document - CONSTITUTIONAL Agree With Documented VS: Yes - INFECTION CONTROL TRAVEL OUTSIDE OF THE [place] IN LAST 30 DAYS: No Course - Re-evaluation Re-evalutation: 07/01/18 17:21 Pt. is currently having CP, discussed this with Dr. Armenta who requests a Nitro drip. Orders placed. Pt. is non-toxic, VSS, sitting with family, waiting for an admission room. - Vital Signs Vital signs: Temp Pulse Resp BP Pulse Ox 98.6 F 89 22 H 122/44 L 96 07/01/18 15:02 07/01/18 15:02 07/01/18 15:02 07/01/18 15:02 07/01/18 15:02 Discharge - Discharge Clinical Impression: Chest pain Qualifiers: Chest pain type: unspecified Qualified Code(s): R07.9 - Chest pain, unspecified Condition: Stable Disposition: ADMITTED INPATIENT Admitting Provider: [facility] Admitted: [facility]
[2018-07-01 18:03] LABS: ABSOLUTE BASOPHILS # (AUTO) 0.1 10^3/uL (0.0-0.2); ABSOLUTE EOSINOPHILS # (AUTO) 0.1 10^3/uL (0.0-0.6); ABSOLUTE LYMPHOCYTES (AUTO) 1.3 10^3/uL (0.5-4.7); ABSOLUTE MONOCYTES (AUTO) 0.7 10^3/uL (0.1-1.4); ABSOLUTE NEUT (AUTO) 4.2 10^3/uL (1.7-8.2); BASOPHILS % (AUTO) 0.8 % (0-2); EOSINOPHILS % (AUTO) 0.9 % (0-6); HEMATOCRIT 37.5 % (36.0-47.0); HEMOGLOBIN 12.9 g/dL (12.0-15.5); LYMPHOCYTES % (AUTO) 20.7 % (13-45); MEAN CORPUSCULAR HEMOGLOBIN 31.6 pg (27.0-33.4); MEAN CORPUSCULAR HGB CONC 34.4 g/dL (32.0-36.0); MEAN CORPUSCULAR VOLUME 92 fl (80-97); MONOCYTES % (AUTO) 11.3 % (3-13); PLATELET COUNT 309 10^3/uL (150-450); RED BLOOD COUNT 4.08 10^6/uL (3.72-5.28); RED CELL DISTRIBUTION WIDTH 13.9 % (11.5-14.0); SEGMENTED NEUTROPHILS % (AUTO) 66.3 % (42-78); TOTAL CELLS COUNTED % (AUTO) 100 %; WHITE BLOOD COUNT 6.4 10^3/uL (4.0-10.5)
[2018-07-01 18:14] LABS: INTERNATIONAL RATION (INR) 0.95; PROTHROMBIN TIME 13.1 SEC (11.4-15.4)
[2018-07-01 18:17] LABS: D-DIMER 0.55 ug/mL (0.00-0.50)
[2018-07-01 18:38] LABS: CREATINE KINASE MB 1.26 ng/mL (<4.55)
[2018-07-01 18:40] LABS: TROPONIN I < 0.012 ng/mL
[2018-07-01 18:54] LABS: ALANINE AMINOTRANSFERASE 8 U/L (9-52); ALBUMIN 3.9 g/dL (3.5-5.0); ALKALINE PHOSPHATASE 81 U/L (38-126); ANION GAP 10 (5-19); ASPARTATE AMINO TRANSFERASE 23 U/L (14-36); BILIRUBIN,DIRECT 0.3 mg/dL (0.0-0.4); BILIRUBIN,TOTAL 0.3 mg/dL (0.2-1.3); BLOOD UREA NITROGEN 20 mg/dL (7-20); CALCIUM 9.4 mg/dL (8.4-10.2); CARBON DIOXIDE 27 mmol/L (22-30); CHLORIDE 103 mmol/L (98-107); CREATINE KINASE 41 U/L (30-135); GLUCOSE 194 mg/dL (75-110); POTASSIUM 4.1 mmol/L (3.6-5.0); TOTAL PROTEIN 6.8 g/dL (6.3-8.2)
--- NOTE | 2018-07-01 19:04 | RADIOLOGY REPORT (SQ) ---
EXAM DESCRIPTION: CHEST SINGLE VIEW COMPLETED DATE/TIME: 07/01/2018 6:17 pm REASON FOR STUDY: CP COMPARISON: 08/08/2007 EXAM PARAMETERS: NUMBER OF VIEWS: One view. TECHNIQUE: Single frontal radiographic view of the chest acquired. RADIATION DOSE: NA LIMITATIONS: None. FINDINGS: LUNGS AND PLEURA: No opacities, masses or pneumothorax. No pleural effusion. MEDIASTINUM AND HILAR STRUCTURES: No masses. Contour normal. HEART AND VASCULAR STRUCTURES: Heart normal in size. Normal vasculature. BONES: No acute findings. HARDWARE: None in the chest. OTHER: No other significant finding. IMPRESSION: NO ACUTE RADIOGRAPHIC FINDING IN THE CHEST. TECHNICAL DOCUMENTATION: JOB ID: [id number] [employer]- All Rights Reserved Reading location - IP/workstation name: [email or web address]
[2018-07-01] MEDS ORDERED: INVEGA SUSTENNA IM SCH (20:15)
[2018-07-01] MEDS ORDERED: CANAGLIFLOZIN PO SCH (20:30)
[2018-07-01] MEDS ORDERED: (PENDING PHARMACY ID) (Esomeprazole Mag Trihydrate [Nexium] 40 MG) PO SCH (20:30)
[2018-07-01] MEDS ORDERED: (PENDING PHARMACY ID) (Amantadine Hcl [Amantadine] 100 MG) PO SCH (20:30)
[2018-07-01] MEDS ORDERED: METFORMIN HCL PO SCH (20:30)
[2018-07-01 21:30] LABS: LIPASE 89.6 U/L (23-300)
[2018-07-01 21:32] LABS: INTERNATIONAL RATION (INR) 0.98; PROTHROMBIN TIME 13.5 SEC (11.4-15.4)
[2018-07-01 21:33] LABS: PARTIAL THROMBOPLASTIN TIME 29.6 SEC (23.5-35.8)
[2018-07-01 21:43] LABS: CREATINE KINASE MB 1.14 ng/mL (<4.55)
[2018-07-01 21:47] LABS: FREE T4 (FREE THYROXINE) 1.45 ng/dL (0.78-2.19)
[2018-07-01 21:48] LABS: TROPONIN I < 0.012 ng/mL
[2018-07-01 22:01] LABS: THYROID STIMULATING HORMONE 3.66 uIU/mL (0.47-4.68)
--- NOTE | 2018-07-01 22:55 | EKG REPORT ---
SEVERITY:- ABNORMAL ECG - SINUS RHYTHM PROBABLE LEFT ATRIAL ABNORMALITY CONSIDER ANTEROSEPTAL INFARCT : Confirmed by: Alana Botello MD 01-Jul-2018 22:54:49
[2018-07-01] MEDS: ATORVASTATIN CALCIUM 20 MG TABLET PO SCH (23:19)
[2018-07-01] MEDS: DIVALPROEX SODIUM 500 MG TAB.SR.24H PO SCH (23:20)
[2018-07-01] MEDS: ENOXAPARIN SODIUM INJ 40 MG/0.4 ML DISP.SYRIN SUBCUT SCH (23:22)
[2018-07-02] MEDS: SITAGLIPTIN PHOSPHATE 50 MG TABLET PO SCH ×3 (00:24→17:31)
[2018-07-02 03:22] LABS: HEMATOCRIT 36.5 % (36.0-47.0); HEMOGLOBIN 12.5 g/dL (12.0-15.5); MEAN CORPUSCULAR HEMOGLOBIN 31.3 pg (27.0-33.4); MEAN CORPUSCULAR HGB CONC 34.3 g/dL (32.0-36.0); MEAN CORPUSCULAR VOLUME 91 fl (80-97); PLATELET COUNT 261 10^3/uL (150-450); RED CELL DISTRIBUTION WIDTH 14.1 % (11.5-14.0); WHITE BLOOD COUNT 6.1 10^3/uL (4.0-10.5)
[2018-07-02 03:36] LABS: ALANINE AMINOTRANSFERASE 23 U/L (9-52); ALBUMIN 3.2 g/dL (3.5-5.0); ALKALINE PHOSPHATASE 63 U/L (38-126); ANION GAP 5 (5-19); ASPARTATE AMINO TRANSFERASE 15 U/L (14-36); BILIRUBIN,DIRECT 0.1 mg/dL (0.0-0.4); BILIRUBIN,TOTAL 0.3 mg/dL (0.2-1.3); BLOOD UREA NITROGEN 20 mg/dL (7-20); CARBON DIOXIDE 29 mmol/L (22-30); CHLORIDE 105 mmol/L (98-107); GLUCOSE 71 mg/dL (75-110); POTASSIUM 3.9 mmol/L (3.6-5.0); SODIUM 138.5 mmol/L (137-145); TOTAL PROTEIN 5.6 g/dL (6.3-8.2); TRIGLYCERIDES 52 mg/dL (<150)
[2018-07-02 03:47] LABS: CREATINE KINASE MB 0.96 ng/mL (<4.55); DIRECT LDL 66 mg/dL (<100)
[2018-07-02 03:48] LABS: TROPONIN I < 0.012 ng/mL
[2018-07-02 03:51] LABS: ABSOLUTE MONOCYTES # (MANUAL) 0.8 10^3/uL (0.1-1.4); ABSOLUTE NEUTROPHILS# (MANUAL) 4.3 10^3/uL (1.7-8.2); BASOPHILS % (MANUAL) 0 % (0-2); EOSINOPHILS % (MANUAL) 0 % (0-6); LYMPHOCYTES % (MANUAL) 17 % (13-45); MONOCYTES % (MANUAL) 13 % (3-13); SEGMENTED NEUTROPHILS % (MAN) 70 % (42-78); TOTAL CELLS COUNTED 100
[2018-07-02 03:58] LABS: PLATELET COMMENT ADEQUATE; RBC MORPHOLOGY COMMENT NORMO-CYTIC/CHROMIC; TOXIC GRANULATION SLIGHT; TOXIC VACUOLATION PRESENT
[2018-07-02] MEDS: RAMIPRIL 2.5 MG CAPSULE PO SCH ×2 (07:50→11:00)
[2018-07-02] MEDS: LANSOPRAZOLE 30 MG TAB.RAP.DR PO SCH (08:15)
--- NOTE | 2018-07-02 08:57 | EKG REPORT ---
SEVERITY:- ABNORMAL ECG - SINUS RHYTHM ANTERIOR INFARCT, OLD : Confirmed by: Alana Botello MD 02-Jul-2018 08:56:55
[2018-07-02 09:39] LABS: APPEARANCE,URINE CLEAR; BILIRUBIN,URINE NEGATIVE (NEGATIVE); COLOR,URINE YELLOW; GLUCOSE, URINE >=500 mg/dL (NEGATIVE); KETONES,URINE TRACE mg/dL (NEGATIVE); LEUKOCYTE ESTERASE,URINE NEGATIVE (NEGATIVE); NITRITE,URINE NEGATIVE (NEGATIVE); PROTEIN,URINE NEGATIVE (NEGATIVE); URINE SPECIFIC GRAVITY 1.031; UROBILINOGEN,URINE NEGATIVE mg/dL (<2.0)
[2018-07-02 09:46] LABS: CREATINE KINASE MB 0.98 ng/mL (<4.55)
[2018-07-02 09:53] LABS: TROPONIN I < 0.012 ng/mL
[2018-07-02 09:56] LABS: URINE AMPHETAMINES SCREEN NEGATIVE; URINE BARBITURATES SCREEN NEGATIVE; URINE BENZODIAZEPINES SCREEN NEGATIVE; URINE COCAINE SCREEN NEGATIVE; URINE MARIJUANA (THC) SCREEN NEGATIVE; URINE METHADONE SCREEN NEGATIVE; URINE PHENCYCLIDINE SCREEN NEGATIVE
[2018-07-02] MEDS: GLIMEPIRIDE 1 MG TABLET PO SCH (11:02)
[2018-07-02] MEDS: ENOXAPARIN SODIUM INJ 40 MG/0.4 ML DISP.SYRIN SUBCUT SCH (11:06)
[2018-07-02] MEDS: AMANTADINE HCL 100 MG CAPSULE PO SCH (11:07)
[2018-07-02] MEDS: CLOPIDOGREL BISULFATE 75 MG TABLET PO SCH (13:36)
[2018-07-02] MEDS ORDERED: IPRATROPIUM/ALBUTEROL 0.5-2.5 MG/3 ML AMPUL NEB PRN (14:00)
[2018-07-02] MEDS ORDERED: LEVOFLOXACIN 750 MG/D5W RTU 750 MG/150 ML RTUPB IV SCH (14:00)
--- NOTE | 2018-07-02 14:38 | RADIOLOGY REPORT (SQ) ---
EXAM DESCRIPTION: CT CHEST WITHOUT COMPLETED DATE/TIME: 07/02/2018 2:25 pm REASON FOR STUDY: cough? pneumonia /copd COMPARISON: AP chest 07/01/2018 CT chest 08/24/2017, 07/07/2007 TECHNIQUE: CT scan performed of the chest without intravenous contrast. Images reviewed with lung, soft tissue and bone windows. Reconstructed coronal and sagittal MPR images reviewed. All images st ored on PACS. All CT scanners at this facility use dose modulation, iterative reconstruction, and/or weight based d osing when appropriate to reduce radiation dose to as low as reasonably achievable (ALARA). [facility]: Dose Right [facility]: CareDose [facility]: Dose Right [facility]: Teradose 4D [facility]: [employer] RADIATION DOSE: CT Rad equipment meets quality standard of care and radiation dose reduction techniq ues were employed. CTDIvol: 5.2 mGy. DLP: 194 mGy-cm. mGy. LIMITATIONS: No technical limitations. FINDINGS: LUNGS AND PLEURA: No masses, infiltrates, or pneumothorax. No pleural effusions or pleura l calcifications. No significant pulmonary nodules HILAR AND MEDIASTINAL STRUCTURES: No identified masses or abnormal nodes. No obvious aneurysm. HEART AND VASCULAR STRUCTURES: No aneurysm. No pericardial effusion. Heavily calcified aortic valve coronary arteries UPPER ABDOMEN: There is air in the biliary tree, likely post sphincterotomy or biliary enteric anasto mosis. THYROID AND OTHER SOFT TISSUES: No masses. No adenopathy. BONES: No significant finding. HARDWARE: None in the chest. OTHER: No other significant findings. IMPRESSION: No acute infiltrates. Heavily calcified coronary arteries and aortic valve TECHNICAL DOCUMENTATION: JOB ID: [id number] Quality ID # [id number]: Final reports with documentation of one or more dose reduction techniques (e.g., Au tomated exposure control, adjustment of the mA and/or kV according to patient size, use of iterative reconstruction technique) 2010 [employer]- All Rights Reserved Reading location - IP/workstation name: [email or web address]
--- NOTE | 2018-07-02 16:37 | PDOC H&P ---
History of Present Illness Admission Date/PCP: 07/01/18 15:36 EMIGDIO SAMSON MD History of Present Illness: JENNI BETTENCOURT is a 72 year old female, She came to the office for eval uation of chest pain, the chest pain is left-sided, it has a tightness quality to it, the pain is not provoked by activity or emotion, she also complains of cough, the cough is dry. Because she has multiple risk factors for ischemic heart disease, she has type 2 diabetes mellitus, long history of tobacco use, hypertension, and suspected underlying coronary artery disease, a twelve-lead EKG was done in the office, it demonstrated sinus rhythm with Q wave in V1 to V3, because of her risk factors and the fact that she has chest pain I felt the best plan will be to admit to the hospital for evaluation and management, no bed was available so patient was directed to the emergency room. Past Medical History Pulmonary Medical History: Reports: Asthma Endocrine Medical History: Reports: Diabetes Mellitus Type 2 Musculoskeltal Medical History: Reports: Arthritis - HANDS AND LEGS Psychiatric Medical History: Reports: Bipolar Disorder, Depression Past Surgical History Past Surgical History: Reports: Appendectomy, Hysterectomy Social History Smoking Status: Current Every Day Smoker Frequency of Alcohol Use: None Drugs: None Family History Family History: None Parental Family History Reviewed: Yes Children Family History Reviewed: Yes Sibling(s) Family History Reviewed.: Yes Medication/Allergy Home Medications: Amantadine HCl [Amantadine] 100 mg PO DAILY 12/06/16 Atorvastatin Calcium [Lipitor 20 mg Tablet] 20 mg PO QHS 12/06/16 Canagliflozin/Metformin HCl [Invokamet 50-500 mg Tablet] 1 tab PO BIDACBS 12/06/16 Divalproex Sodium [Divalproex Sodium ER] 1,000 mg PO QHS 12/06/16 Esomeprazole Mag Trihydrate [Nexium] 40 mg PO DAILY 12/06/16 Invega Sustenna 117mg/ 0.75ml 117 mg IM [id number] 12/06/16 Ramipril [Altace 2.5 mg Capsule] 2.5 mg PO DAILY 12/06/16 Sitagliptin Phosphate [Januvia 50 mg Tablet] 50 mg PO BID 12/06/16 Glimepiride [Amaryl] 2 mg PO DAILY 07/01/18 Allergies/Adverse Reactions: Penicillins Allergy (Unknown, Verified 07/01/18 14:37) lithium Adverse Reaction (Intermediate, Verified 07/01/18 14:37) vomiting, severe headach, diarrhea Review of Systems Constitutional: ABSENT: chills, fever(s), headache(s), weight gain, weight loss Eyes: ABSENT: visual disturbances Ears: ABSENT: hearing changes Cardiovascular: PRESENT: chest pain Respiratory: PRESENT: cough Gastrointestinal: ABSENT: abdominal pain, constipation, diarrhea, hematemesis, hematochezia, nausea, vomiting Genitourinary: ABSENT: dysuria, hematuria Musculoskeletal: ABSENT: joint swelling Integumentary: ABSENT: rash, wounds Neurological: ABSENT: abnormal gait, abnormal speech, confusion, dizziness, focal weakness, syncope Psychiatric: ABSENT: anxiety, depression, homidical ideation, suicidal ideation Endocrine: ABSENT: cold intolerance, heat intolerance, menstrual abnormalities, polydipsia, polyuria Hematologic/Lymphatic: ABSENT: easy bleeding, easy bruising, lymphadenopathy Physical Exam Vital Signs: Temp Pulse Resp BP Pulse Ox 98.0 F 73 16 129/52 H 95 07/02/18 14:05 07/02/18 14:05 07/02/18 14:05 07/02/18 14:05 07/02/18 14:05 Intake & Output 07/01/18 07/02/18 07/03/18 06:59 06:59 06:59 Intake Total 15 Balance 15 Weight 56.9 kg General appearance: PRESENT: no acute distress Head exam: PRESENT: atraumatic, normocephalic Eye exam: PRESENT: PERRLA Mouth exam: PRESENT: moist Neck exam: PRESENT: full ROM Respiratory exam: PRESENT: clear to auscultation marcela Cardiovascular exam: PRESENT: RRR, +S1, +S2 Pulses: PRESENT: normal dorsalis pedis pul, +2 pedal pulses bilateral Vascular exam: PRESENT: normal capillary refill GI/Abdominal exam: PRESENT: normal bowel sounds, soft Rectal exam: PRESENT: deferred Neurological exam: PRESENT: alert, awake, oriented to person, oriented to place, oriented to time, oriented to situation, CN II-XII grossly intact Psychiatric exam: PRESENT: appropriate affect, normal mood Skin exam: PRESENT: dry, intact, warm Results Laboratory Results: 07/02/18 03:10 07/02/18 03:10 07/01/18 07/01/1819 17:43 17:43 17:43 WBC 6.4 RBC 4.08 Hgb 12.9 Hct 37.5 MCV 92 MCH 31.6 MCHC 34.4 RDW 13.9 Plt Count 309 Seg Neutrophils % 66.3 Lymphocytes % 20.7 Monocytes % 11.3 Eosinophils % 0.9 Basophils % 0.8 Absolute Neutrophils 4.2 Absolute Lymphocytes 1.3 Absolute Monocytes 0.7 Absolute Eosinophils 0.1 Absolute Basophils 0.1 Sodium 140.0 Potassium 4.1 Chloride 103 Carbon Dioxide 27 Anion Gap 10 BUN 20 Creatinine 0.56 Est GFR ( Amer) > 60 Est GFR (Non-Af Amer) > 60 Glucose 194 H Calcium 9.4 Phosphorus Magnesium Total Bilirubin 0.3 AST 23 ALT 8 L Alkaline Phosphatase 81 Ammonia Total Protein 6.8 Albumin 3.9 Triglycerides Cholesterol LDL Cholesterol Direct VLDL Cholesterol HDL Cholesterol Amylase Lipase TSH 3.99 Free T4 Urine Color Urine Appearance Urine pH Ur Specific Casar Urine Protein Urine Glucose (UA) Urine Ketones Urine Blood Urine Nitrite Ur Leukocyte Esterase Urine RBC (Auto) 07/01/18 07/01/18 07/01/18 17:43 21:00 21:00 WBC RBC Hgb Hct MCV MCH MCHC RDW Plt Count Seg Neutrophils % Lymphocytes % Monocytes % Eosinophils % Basophils % Absolute Neutrophils Absolute Lymphocytes Absolute Monocytes Absolute Eosinophils Absolute Basophils Sodium Potassium Chloride Carbon Dioxide Anion Gap BUN Creatinine Est GFR ( Amer) Est GFR (Non-Af Amer) Glucose Calcium Phosphorus 4.0 Magnesium 1.8 Total Bilirubin AST ALT Alkaline Phosphatase Ammonia 9.3 Total Protein Albumin Triglycerides Cholesterol LDL Cholesterol Direct VLDL Cholesterol HDL Cholesterol Amylase 41 Lipase 89.6 TSH Free T4 1.37 Urine Color Urine Appearance Urine pH Ur Specific Casar Urine Protein Urine Glucose (UA) Urine Ketones Urine Blood Urine Nitrite Ur Leukocyte Esterase Urine RBC (Auto) 07/01/18 07/02/18 07/02/18 21:00 03:10 03:10 WBC 6.1 RBC 4.00 Hgb 12.5 Hct 36.5 MCV 91 MCH 31.3 MCHC 34.3 RDW 14.1 H Plt Count 261 Seg Neutrophils % Not Reportable Lymphocytes % Not Reportable Monocytes % Not Reportable Eosinophils % Not Reportable Basophils % Not Reportable Absolute Neutrophils Not Reportable Absolute Lymphocytes Not Reportable Absolute Monocytes Not Reportable Absolute Eosinophils Not Reportable Absolute Basophils Not Reportable Sodium 138.5 Potassium 3.9 Chloride 105 Carbon Dioxide 29 Anion Gap 5 BUN 20 Creatinine 0.39 L Est GFR ( Amer) > 60 Est GFR (Non-Af Amer) > 60 Glucose 71 L Calcium 9.0 Phosphorus Magnesium Total Bilirubin 0.3 AST 15 ALT 23 Alkaline Phosphatase 63 Ammonia Total Protein 5.6 L Albumin 3.2 L Triglycerides 52 Cholesterol 120.80 LDL Cholesterol Direct 66 VLDL Cholesterol 10.0 HDL Cholesterol 44 Amylase Lipase TSH 3.66 Free T4 1.45 Urine Color Urine Appearance Urine pH Ur Specific Casar Urine Protein Urine Glucose (UA) Urine Ketones Urine Blood Urine Nitrite Ur Leukocyte Esterase Urine RBC (Auto) 07/02/18 09:22 WBC RBC Hgb Hct MCV MCH MCHC RDW Plt Count Seg Neutrophils % Lymphocytes % Monocytes % Eosinophils % Basophils % Absolute Neutrophils Absolute Lymphocytes Absolute Monocytes Absolute Eosinophils Absolute Basophils Sodium Potassium Chloride Carbon Dioxide Anion Gap BUN Creatinine Est GFR ( Amer) Est GFR (Non-Af Amer) Glucose Calcium Phosphorus Magnesium Total Bilirubin AST ALT Alkaline Phosphatase Ammonia Total Protein Albumin Triglycerides Cholesterol LDL Cholesterol Direct VLDL Cholesterol HDL Cholesterol Amylase Lipase TSH Free T4 Urine Color YELLOW Urine Appearance CLEAR Urine pH 6.0 Ur Specific Casar 1.031 Urine Protein NEGATIVE Urine Glucose (UA) >=500 H Urine Ketones TRACE H Urine Blood SMALL H Urine Nitrite NEGATIVE Ur Leukocyte Esterase NEGATIVE Urine RBC (Auto) 5 07/01/18 07/01/18 07/01/18 17:43 17:43 21:00 Creatine Kinase 41 31 CK-MB (CK-2) 1.26 Troponin I < 0.012 07/01/18 07/02/18 07/02/18 21:00 03:10 03:10 Creatine Kinase 23 L CK-MB (CK-2) 1.14 0.96 Troponin I < 0.012 < 0.012 07/02/18 07/02/18 09:10 09:10 Creatine Kinase 24 L CK-MB (CK-2) 0.98 Troponin I < 0.012 Impressions: Chest X-Ray 07/01/18 17:14 IMPRESSION: NO ACUTE RADIOGRAPHIC FINDING IN THE CHEST. Chest CT 07/02/18 00:00 IMPRESSION: No acute infiltrates. Heavily calcified coronary arteries and aortic valve Assessment & Plan - Diagnosis (1) Chest pain Qualifiers: Chest pain type: unspecified Qualified Code(s): R07.9 - Chest pain, unspecified Is this a current diagnosis for this admission?: Yes Plan: The chest pain is suspicious but not typical for ischemic heart disease, I cannot completely rule out acute coronary syndrome, she has multiple risk factors for ischemic heart disease, she is given Plavix 300 mg p.o. and aspirin 81 mg 2 tablet p.o. based on CURE study provisions cardiac enzymes will be drawn to rule out acute myocardial infarction she may need Lexiscan stress test before she is discharged (2) Chronic obstructive pulmonary disease Qualifiers: COPD type: unspecified COPD Qualified Code(s): J44.9 - Chronic obstructive pulmonary disease, unspecified Is this a current diagnosis for this admission?: Yes Plan: She has underlying chronic obstructive lung disease, she is coughing presently not wheezing (3) Type 2 diabetes mellitus Qualifiers: Diabetes mellitus terminal superintendent insulin use: without terminal superintendent use Diabetes mellitus complication status: with neurologic complications Diabetes mellitus complication detail: with polyneuropathy Qualified Code(s): E11.42 - Type 2 diabetes mellitus with diabetic polyneuropathy Is this a current diagnosis for this admission?: Yes (4) Bipolar 1 disorder, depressed Is this a current diagnosis for this admission?: Yes
--- NOTE | 2018-07-02 16:43 | PDOC PROGRESS REPORT ---
Subjective Progress Note for:: 07/02/18 Subjective:: Patient was admitted yesterday for evaluation and management of chest pain in the setting of multiple risk factors for ischemic heart disease, yesterday she was treated with intravenous nitroglycerin infusion because of ongoing chest pain. She was seen today still in the ER awaiting a bed on the floor, on auscultation of the chest there was diffuse wheeze in both lung leal, a start chest CT was done, there was no acute pathology on the chest CT, she has underl velia COPD from years of tobacco use Reason For Visit: CHEST PAIN, ACUTE CORONARY SYNDROME, T2DM Physical Exam Vital Signs: Temp Pulse Resp BP Pulse Ox 98.0 F 73 16 129/52 H 95 07/02/18 14:05 07/02/18 14:05 07/02/18 14:05 07/02/18 14:05 07/02/18 14:05 Intake & Output 07/01/18 07/02/18 07/03/18 06:59 06:59 06:59 Intake Total 15 Balance 15 Weight 56.9 kg General appearance: PRESENT: mild distress Eye exam: PRESENT: PERRLA Respiratory exam: PRESENT: wheezes Cardiovascular exam: PRESENT: +S1, +S2 GI/Abdominal exam: PRESENT: soft Neurological exam: PRESENT: alert, CN II-XII grossly intact Results Laboratory Results: 07/02/18 03:10 07/02/18 03:10 07/01/18 07/01/18 07/01/18 17:43 17:43 17:43 WBC 6.4 RBC 4.08 Hgb 12.9 Hct 37.5 MCV 92 MCH 31.6 MCHC 34.4 RDW 13.9 Plt Count 309 Seg Neutrophils % 66.3 Lymphocytes % 20.7 Monocytes % 11.3 Eosinophils % 0.9 Basophils % 0.8 Absolute Neutrophils 4.2 Absolute Lymphocytes 1.3 Absolute Monocytes 0.7 Absolute Eosinophils 0.1 Absolute Basophils 0.1 Sodium 140.0 Potassium 4.1 Chloride 103 Carbon Dioxide 27 Anion Gap 10 BUN 20 Creatinine 0.56 Est GFR ( Amer) > 60 Est GFR (Non-Af Amer) > 60 Glucose 194 H Calcium 9.4 Phosphorus Magnesium Total Bilirubin 0.3 AST 23 ALT 8 L Alkaline Phosphatase 81 Ammonia Total Protein 6.8 Albumin 3.9 Triglycerides Cholesterol LDL Cholesterol Direct VLDL Cholesterol HDL Cholesterol Amylase Lipase TSH 3.99 Free T4 Urine Color Urine Appearance Urine pH Ur Specific Eugene Urine Protein Urine Glucose (UA) Urine Ketones Urine Blood Urine Nitrite Ur Leukocyte Esterase Urine RBC (Auto) 07/01/18 07/01/18 07/01/18 17:43 21:00 21:00 WBC RBC Hgb Hct MCV MCH MCHC RDW Plt Count Seg Neutrophils % Lymphocytes % Monocytes % Eosinophils % Basophils % Absolute Neutrophils Absolute Lymphocytes Absolute Monocytes Absolute Eosinophils Absolute Basophils Sodium Potassium Chloride Carbon Dioxide Anion Gap BUN Creatinine Est GFR ( Amer) Est GFR (Non-Af Amer) Glucose Calcium Phosphorus 4.0 Magnesium 1.8 Total Bilirubin AST ALT Alkaline Phosphatase Ammonia 9.3 Total Protein Albumin Triglycerides Cholesterol LDL Cholesterol Direct VLDL Cholesterol HDL Cholesterol Amylase 41 Lipase 89.6 TSH Free T4 1.37 Urine Color Urine Appearance Urine pH Ur Specific Eugene Urine Protein Urine Glucose (UA) Urine Ketones Urine Blood Urine Nitrite Ur Leukocyte Esterase Urine RBC (Auto) 07/01/18 07/02/18 07/02/18 21:00 03:10 03:10 WBC 6.1 RBC 4.00 Hgb 12.5 Hct 36.5 MCV 91 MCH 31.3 MCHC 34.3 RDW 14.1 H Plt Count 261 Seg Neutrophils % Not Reportable Lymphocytes % Not Reportable Monocytes % Not Reportable Eosinophils % Not Reportable Basophils % Not Reportable Absolute Neutrophils Not Reportable Absolute Lymphocytes Not Reportable Absolute Monocytes Not Reportable Absolute Eosinophils Not Reportable Absolute Basophils Not Reportable Sodium 138.5 Potassium 3.9 Chloride 105 Carbon Dioxide 29 Anion Gap 5 BUN 20 Creatinine 0.39 L Est GFR ( Amer) > 60 Est GFR (Non-Af Amer) > 60 Glucose 71 L Calcium 9.0 Phosphorus Magnesium Total Bilirubin 0.3 AST 15 ALT 23 Alkaline Phosphatase 63 Ammonia Total Protein 5.6 L Albumin 3.2 L Triglycerides 52 Cholesterol 120.80 LDL Cholesterol Direct 66 VLDL Cholesterol 10.0 HDL Cholesterol 44 Amylase Lipase TSH 3.66 Free T4 1.45 Urine Color Urine Appearance Urine pH Ur Specific Eugene Urine Protein Urine Glucose (UA) Urine Ketones Urine Blood Urine Nitrite Ur Leukocyte Esterase Urine RBC (Auto) 07/02/18 09:22 WBC RBC Hgb Hct MCV MCH MCHC RDW Plt Count Seg Neutrophils % Lymphocytes % Monocytes % Eosinophils % Basophils % Absolute Neutrophils Absolute Lymphocytes Absolute Monocytes Absolute Eosinophils Absolute Basophils Sodium Potassium Chloride Carbon Dioxide Anion Gap BUN Creatinine Est GFR ( Amer) Est GFR (Non-Af Amer) Glucose Calcium Phosphorus Magnesium Total Bilirubin AST ALT Alkaline Phosphatase Ammonia Total Protein Albumin Triglycerides Cholesterol LDL Cholesterol Direct VLDL Cholesterol HDL Cholesterol Amylase Lipase TSH Free T4 Urine Color YELLOW Urine Appearance CLEAR Urine pH 6.0 Ur Specific Eugene 1.031 Urine Protein NEGATIVE Urine Glucose (UA) >=500 H Urine Ketones TRACE H Urine Blood SMALL H Urine Nitrite NEGATIVE Ur Leukocyte Esterase NEGATIVE Urine RBC (Auto) 5 07/01/18 07/01/18 07/01/18 17:43 17:43 21:00 Creatine Kinase 41 31 CK-MB (CK-2) 1.26 Troponin I < 0.012 07/01/18 07/02/18 07/02/18 21:00 03:10 03:10 Creatine Kinase 23 L CK-MB (CK-2) 1.14 0.96 Troponin I < 0.012 < 0.012 07/02/18 07/02/18 09:10 09:10 Creatine Kinase 24 L CK-MB (CK-2) 0.98 Troponin I < 0.012 Impressions: Chest X-Ray 07/01/18 17:14 IMPRESSION: NO ACUTE RADIOGRAPHIC FINDING IN THE CHEST. Chest CT 07/02/18 00:00 IMPRESSION: No acute infiltrates. Heavily calcified coronary arteries and aortic valve Assessment & Plan - Diagnosis (1) Chest pain Qualifiers: Chest pain type: unspecified Qualified Code(s): R07.9 - Chest pain, unspecified Is this a current diagnosis for this admission?: Yes Plan: 3 sets of cardiac enzymes, negative for acute TX, she will be scheduled for a Lexiscan stress test on Wednesday morning (2) Chronic obstructive pulmonary disease Qualifiers: COPD type: unspecified COPD Qualified Code(s): J44.9 - Chronic obstructive pulmonary disease, unspecified Is this a current diagnosis for this admission?: Yes Plan: She has wheezing in both lung leal suggesting acute COPD exacerbation, start bronchodilators, Solu-Medrol intravenously, history of diabetes, iv solumedrol may worsen serum glucose, start low-dose Solu-Medrol (3) Type 2 diabetes mellitus Qualifiers: Diabetes mellitus jail insulin use: without jail use Diabetes mellitus complication status: with neurologic complications Diabetes mellitus complication detail: with polyneuropathy Qualified Code(s): E11.42 - Type 2 diabetes mellitus with diabetic polyneuropathy Is this a current diagnosis for this admission?: Yes (4) Bipolar 1 disorder, depressed Is this a current diagnosis for this admission?: Yes
[2018-07-02] MEDS: METHYLPREDNISOLONE INJ 40 MG/1 ML SDV IV SCH ×2 (17:24→22:49)
[2018-07-02] MEDS: LEVOFLOXACIN 750 MG/D5W RTU 750 MG/150 ML RTUPB IV SCH (17:25)
[2018-07-02] MEDS: DIVALPROEX SODIUM 500 MG TAB.SR.24H PO SCH (22:49)
[2018-07-02] MEDS: ATORVASTATIN CALCIUM 20 MG TABLET PO SCH (22:50)
[2018-07-03] MEDS: METHYLPREDNISOLONE INJ 40 MG/1 ML SDV IV SCH ×3 (05:21→22:02)
[2018-07-03] MEDS: LANSOPRAZOLE 30 MG TAB.RAP.DR PO SCH (05:21)
[2018-07-03 05:41] LABS: ABSOLUTE LYMPHOCYTES (AUTO) 0.5 10^3/uL (0.5-4.7); ABSOLUTE MONOCYTES (AUTO) 0.2 10^3/uL (0.1-1.4); ABSOLUTE NEUT (AUTO) 3.9 10^3/uL (1.7-8.2); BASOPHILS % (AUTO) 0.2 % (0-2); HEMATOCRIT 38.4 % (36.0-47.0); HEMOGLOBIN 13.3 g/dL (12.0-15.5); LYMPHOCYTES % (AUTO) 9.9 % (13-45); MEAN CORPUSCULAR HEMOGLOBIN 31.7 pg (27.0-33.4); MEAN CORPUSCULAR HGB CONC 34.5 g/dL (32.0-36.0); MEAN CORPUSCULAR VOLUME 92 fl (80-97); MONOCYTES % (AUTO) 4.4 % (3-13); PLATELET COUNT 284 10^3/uL (150-450); RED BLOOD COUNT 4.19 10^6/uL (3.72-5.28); RED CELL DISTRIBUTION WIDTH 13.6 % (11.5-14.0); SEGMENTED NEUTROPHILS % (AUTO) 85.5 % (42-78); TOTAL CELLS COUNTED % (AUTO) 100 %; WHITE BLOOD COUNT 4.6 10^3/uL (4.0-10.5)
[2018-07-03 06:14] LABS: ALANINE AMINOTRANSFERASE 13 U/L (9-52); ALBUMIN 3.7 g/dL (3.5-5.0); ALKALINE PHOSPHATASE 66 U/L (38-126); ANION GAP 11 (5-19); ASPARTATE AMINO TRANSFERASE 17 U/L (14-36); BILIRUBIN,DIRECT 0.2 mg/dL (0.0-0.4); BILIRUBIN,TOTAL 0.3 mg/dL (0.2-1.3); BLOOD UREA NITROGEN 22 mg/dL (7-20); CALCIUM 9.6 mg/dL (8.4-10.2); CARBON DIOXIDE 26 mmol/L (22-30); CHLORIDE 100 mmol/L (98-107); GLUCOSE 238 mg/dL (75-110); POTASSIUM 4.6 mmol/L (3.6-5.0); TOTAL PROTEIN 6.4 g/dL (6.3-8.2)
--- NOTE | 2018-07-03 07:52 | EKG REPORT ---
SEVERITY:- BORDERLINE ECG - SINUS RHYTHM PROBABLE LEFT ATRIAL ABNORMALITY : Confirmed by: Alana Botello MD 03-Jul-2018 07:52:04
[2018-07-03] MEDS: CLOPIDOGREL BISULFATE 75 MG TABLET PO SCH (11:00)
[2018-07-03] MEDS: RAMIPRIL 2.5 MG CAPSULE PO SCH (11:00)
[2018-07-03] MEDS: ENOXAPARIN SODIUM INJ 40 MG/0.4 ML DISP.SYRIN SUBCUT SCH (11:00)
[2018-07-03] MEDS: GLIMEPIRIDE 1 MG TABLET PO SCH (11:00)
[2018-07-03] MEDS: SITAGLIPTIN PHOSPHATE 50 MG TABLET PO SCH ×2 (11:00→17:35)
[2018-07-03] MEDS: AMANTADINE HCL 100 MG CAPSULE PO SCH (11:00)
[2018-07-03] MEDS ORDERED: REGADENOSON INJ 0.4 MG/5 ML DISP.SYRIN IV ONE (11:16)
--- NOTE | 2018-07-03 12:24 | DRAGON STRESS TEST REPORT ---
Date of procedure 07/03/2018 Date of 1945 Sex female Ordering provider Dr Donovan MD Reason for studychest pain Imaging protocol Walking Lexiscan nuclear MIBI SPECT study Rest images of the heart were obtained 90 minutes after injection of technetium 99m sestamibi 10.47 mCi. Under the supervision of Dr. Real Preciado MD patient was walked on manual treadmill protocol and given Lexiscan 0.4 mg IV followed by technetium 99 sestamibi 32.6 mCi. Patient's resting heart rate was 87 bpm and increased to a maximum of 127 bpm. Patient's resting blood pressure was 119/64 and changed to 153/55 mmHg after Lexiscan injection. Patient denied any chest pain after Lexiscan injection but had momentary dizziness which resolved spontaneously. Patient's resting EKG showed sinus rhythm with anterior Q waves suggestive of old CT and upon walking and Lexiscan injection patient developed sinus tachycardia with nonspecific ST changes. Many of the stress EKGs have artifacts which make it difficult to interpret ST changes. However no specific EKG changes for ischemia were noted. Stress images of the heart were obtained 60 minutes after radionuclide stress dose was given. Raw rest and stress images were reviewed and showed significant gut uptake. Myocardial perfusion imaging shows mild severity, predominantly fixed perfusion defect in the inferior LV wall segment suggestive of diaphragmatic attenuation versus old myocardial scar. No convincing evidence of reversible perfusion defect on stress images noted. TID ratio was elevated at 1.27 which could be suggestive of presence of multivessel coronary artery disease although visually did not appear very prominent. Computer-assisted tomographic analysis shows normal LV wall motion and systolic contractility poststress. LVEF was calculated at 70%. Impression 1. Lexiscan induced nonspecific EKG changes but no specific changes to suggest ischemia. 2. Myocardial perfusion imaging shows prominently fixed inferior LV wall defect of mild severity and likely represents myocardial scarring versus diaphragmatic attenuation. 3. TID ratio elevated at 1.27 which could be suggestive of presence of multivessel coronary artery disease. 4. Normal LV wall motion and systolic contractility poststress. Clinical correlation recommended for elevated TID and if patient has multiple risk factors for atherosclerotic cardiovascular disease then consideration should be made for invasive coronary workup to rule out obstructive coronary artery disease. Real Preciado MD [facility]
--- NOTE | 2018-07-03 15:09 | PDOC PROGRESS REPORT ---
Subjective Progress Note for:: 07/03/18 Subjective:: She was seen by the bedside, she had Lexiscan stress test done today, this was abnormal Reason For Visit: CHEST PAIN, ACUTE CORONARY SYNDROME, T2DM Physical Exam Vital Signs: Temp Pulse Resp BP Pulse Ox 99.0 F 67 24 H 125/45 L 95 07/03/18 03:40 07/03/18 07:00 07/03/18 03:40 07/03/18 03:40 07/03/18 03:40 Intake & Output 07/02/18 07/03/18 07/04/18 06:59 06:59 06:59 Intake Total 615 Balance 615 Weight 56.9 kg 58 kg General appearance: PRESENT: no acute distress Eye exam: PRESENT: PERRLA Respiratory exam: PRESENT: rhonchi Cardiovascular exam: PRESENT: +S1, +S2 Neurological exam: PRESENT: alert Results Laboratory Results: 07/03/18 05:00 07/03/18 05:00 07/03/18 07/03/18 05:00 05:00 WBC 4.6 RBC 4.19 Hgb 13.3 Hct 38.4 MCV 92 MCH 31.7 MCHC 34.5 RDW 13.6 Plt Count 284 Seg Neutrophils % 85.5 H Lymphocytes % 9.9 L Monocytes % 4.4 Eosinophils % 0.0 Basophils % 0.2 Absolute Neutrophils 3.9 Absolute Lymphocytes 0.5 Absolute Monocytes 0.2 Absolute Eosinophils 0.0 Absolute Basophils 0.0 Sodium 137.0 Potassium 4.6 Chloride 100 Carbon Dioxide 26 Anion Gap 11 BUN 22 H Creatinine 0.55 Est GFR ( Amer) > 60 Est GFR (Non-Af Amer) > 60 Glucose 238 H Calcium 9.6 Total Bilirubin 0.3 AST 17 ALT 13 Alkaline Phosphatase 66 Total Protein 6.4 Albumin 3.7 07/01/18 07/01/18 07/01/18 17:43 17:43 21:00 Creatine Kinase 41 31 CK-MB (CK-2) 1.26 Troponin I < 0.012 07/01/18 07/02/18 07/02/18 21:00 03:10 03:10 Creatine Kinase 23 L CK-MB (CK-2) 1.14 0.96 Troponin I < 0.012 < 0.012 07/02/18 07/02/18 09:10 09:10 Creatine Kinase 24 L CK-MB (CK-2) 0.98 Troponin I < 0.012 Impressions: Chest X-Ray 07/01/18 17:14 IMPRESSION: NO ACUTE RADIOGRAPHIC FINDING IN THE CHEST. Chest CT 07/02/18 00:00 IMPRESSION: No acute infiltrates. Heavily calcified coronary arteries and aortic valve Assessment & Plan - Diagnosis (1) Chest pain Qualifiers: Chest pain type: unspecified Qualified Code(s): R07.9 - Chest pain, unspecified Is this a current diagnosis for this admission?: Yes Plan: The Cardiolite Lexiscan stress test was abnormal in this patient with multiple CVAs risk factors, consultation will be requested from cardiology (2) Chronic obstructive pulmonary disease Qualifiers: COPD type: unspecified COPD Qualified Code(s): J44.9 - Chronic obstructive pulmonary disease, unspecified Is this a current diagnosis for this admission?: Yes (3) Type 2 diabetes mellitus Qualifiers: Diabetes mellitus moth exterminator insulin use: without mcc use Diabetes mellitus complication status: with neurologic complications Diabetes mellitus complication detail: with polyneuropathy Qualified Code(s): E11.42 - Type 2 diabetes mellitus with diabetic polyneuropathy Is this a current diagnosis for this admission?: Yes (4) Bipolar 1 disorder, depressed Is this a current diagnosis for this admission?: Yes
[2018-07-03] MEDS ORDERED: GLUCAGON,HUMAN RECOMB 1 MG INJ IM PRN (15:30)
[2018-07-03] MEDS ORDERED: DEXTROSE 50%-WATER SYRINGE 25 GM/50 ML DOSE IV PRN (15:30)
[2018-07-03] MEDS ORDERED: DEXTROSE 40% GEL 15 GM TUBE PO PRN (15:30)
[2018-07-03] MEDS ORDERED: DEXTROSE 50%-WATER SYRINGE 12.5 GM/25 ML DOSE IV PRN (15:30)
[2018-07-03] MEDS ORDERED: DEXTROSE 40% GEL 15 GM TUBE X 2 PO PRN (15:30)
--- NOTE | 2018-07-03 17:08 | PDOC CONSULTATION ---
Consultation Consult Date: 07/03/18 Consult reason:: Chest pain with abnormal stress test History of Present Illness Admission Date/PCP: 07/01/18 15:36 EMIGDIO SAMSON MD Patient complains of: Chest pain History of Present Illness: JENNI BETTENCOURT is a 72 year old female with past medical history of diabetes mellitus, hyperlipidemia, hypertension, chronic cigarette smoking who comes in with complaints of cough and cold that she has had over the last 2 weeks with on and off chest pain which she claims is worse on coughing and not related to exertion. She otherwise denies any shortness of breath or palpitations but at times on exertion she does get dizziness and has to stop and rest. She denies any history of passing out episodes. She used to smoke half a pack of cigarettes a day for many years but now is down to 5-6 cigarettes a day. She denies alcohol abuse. Her mother had cancer in 1 of her sisters had valvular heart disease and had a valve replacement done. Patient is single and lives by herself. We were consulted to see the patient as she had a stress test today which had an elevated TID ratio. Past Medical History Cardiac Medical History: Reports: Hyperlipidema Denies: Coronary Artery Disease, Myocardial Infarction, Hypertension Pulmonary Medical History: Reports: Asthma Denies: Bronchitis, Chronic Obstructive Pulmonary Disease (COPD), Pneumonia Neurological Medical History: Denies: Seizures Endocrine Medical History: Reports: Diabetes Mellitus Type 2 GI Medical History: Denies: Hepatitis, Hiatal Hernia Musculoskeltal Medical History: Reports: Arthritis - HANDS AND LEGS Psychiatric Medical History: Reports: Bipolar Disorder, Depression, Tobacco Dependency Hematology: Denies: Anemia, Sickle Cell Disease Past Surgical History Past Surgical History: Reports: Appendectomy, Hysterectomy Denies: Amputation, Mastectomy, Pacemaker Social History Smoking Status: Current Every Day Smoker Cigarettes Packs Per Day: 0.5 Frequency of Alcohol Use: None Hx Recreational Drug Use: No Drugs: None - Advance Directive Resuscitation Status: Full Code Family History Family History: None Parental Family History Reviewed: Yes - Her mother had cancer. Children Family History Reviewed: Yes Sibling(s) Family History Reviewed.: Yes - Her sister had heart valve replacement. Medication/Allergy Home Medications: Amantadine HCl [Amantadine] 100 mg PO DAILY 12/06/16 Atorvastatin Calcium [Lipitor 20 mg Tablet] 20 mg PO QHS 12/06/16 Canagliflozin/Metformin HCl [Invokamet 50-500 mg Tablet] 1 tab PO BIDACBS 12/06/16 Divalproex Sodium [Divalproex Sodium ER] 1,000 mg PO QHS 12/06/16 Esomeprazole Mag Trihydrate [Nexium] 40 mg PO DAILY 12/06/16 Invega Sustenna 117mg/ 0.75ml 117 mg IM [id number] 12/06/16 Ramipril [Altace 2.5 mg Capsule] 2.5 mg PO DAILY 12/06/16 Sitagliptin Phosphate [Januvia 50 mg Tablet] 50 mg PO BID 12/06/16 Glimepiride [Amaryl] 2 mg PO DAILY 07/01/18 Allergies/Adverse Reactions: Penicillins Allergy (Unknown, Verified 07/01/18 14:37) lithium Adverse Reaction (Intermediate, Verified 07/01/18 14:37) vomiting, severe headach, diarrhea Review of Systems Cardiovascular: PRESENT: chest pain Respiratory: PRESENT: cough Neurological: PRESENT: dizziness Physical Exam Vital Signs: Temp Pulse Resp BP Pulse Ox 97.7 F 72 16 127/49 H 97 07/03/18 14:59 07/03/18 14:59 07/03/18 14:59 07/03/18 14:59 07/03/18 14:59 Intake & Output 07/02/18 07/03/18 07/04/18 06:59 06:59 06:59 Intake Total 615 Balance 615 Weight 56.9 kg 58 kg General appearance: PRESENT: no acute distress, thin Head exam: PRESENT: atraumatic, normocephalic Mouth exam: PRESENT: moist, tongue midline Neck exam: PRESENT: full ROM Respiratory exam: PRESENT: clear to auscultation marcela Cardiovascular exam: PRESENT: systolic murmur Pulses: PRESENT: normal radial pulses, normal femoral pulses, normal dorsalis pedis pul, +2 pedal pulses bilateral Neurological exam: PRESENT: alert, awake, oriented to person, oriented to place, oriented to time, oriented to situation Results Laboratory Results: 07/03/18 05:00 07/03/18 05:00 07/03/18 07/03/18 05:00 05:00 WBC 4.6 RBC 4.19 Hgb 13.3 Hct 38.4 MCV 92 MCH 31.7 MCHC 34.5 RDW 13.6 Plt Count 284 Seg Neutrophils % 85.5 H Lymphocytes % 9.9 L Monocytes % 4.4 Eosinophils % 0.0 Basophils % 0.2 Absolute Neutrophils 3.9 Absolute Lymphocytes 0.5 Absolute Monocytes 0.2 Absolute Eosinophils 0.0 Absolute Basophils 0.0 Sodium 137.0 Potassium 4.6 Chloride 100 Carbon Dioxide 26 Anion Gap 11 BUN 22 H Creatinine 0.55 Est GFR ( Amer) > 60 Est GFR (Non-Af Amer) > 60 Glucose 238 H Calcium 9.6 Total Bilirubin 0.3 AST 17 ALT 13 Alkaline Phosphatase 66 Total Protein 6.4 Albumin 3.7 07/01/18 07/01/18 07/01/18 17:43 17:43 21:00 Creatine Kinase 41 31 CK-MB (CK-2) 1.26 Troponin I < 0.012 07/01/18 07/02/18 07/02/18 21:00 03:10 03:10 Creatine Kinase 23 L CK-MB (CK-2) 1.14 0.96 Troponin I < 0.012 < 0.012 07/02/18 07/02/18 09:10 09:10 Creatine Kinase 24 L CK-MB (CK-2) 0.98 Troponin I < 0.012 Impressions: Chest X-Ray 07/01/18 17:14 IMPRESSION: NO ACUTE RADIOGRAPHIC FINDING IN THE CHEST. Chest CT 07/02/18 00:00 IMPRESSION: No acute infiltrates. Heavily calcified coronary arteries and aortic valve Assessment & Plan - Diagnosis (1) Chest pain Qualifiers: Chest pain type: unspecified Qualified Code(s): R07.9 - Chest pain, unspecified Is this a current diagnosis for this admission?: Yes (3) Type 2 diabetes mellitus Qualifiers: Diabetes mellitus intermediate manager insulin use: without half-way use Diabetes mellitus complication status: with neurologic complications Diabetes mellitus complication detail: with polyneuropathy Qualified Code(s): E11.42 - Type 2 diabetes mellitus with diabetic polyneuropathy Is this a current diagnosis for this admission?: Yes - Notes Notes: 72-year-old female with past medical history of diabetes, hypertension, hyperlipidemia, history of chronic cigarette smoking admitted with atypical chest pain with EKG showing probable old anteroseptal infarct and nuclear stress test with a predominantly fixed inferior perfusion defect likely digital media representative of diaphragmatic attenuation/myocardial scar but also showing elevated TID ratio at 1.27 which could suggest presence of multivessel coronary artery disease. Patient does have multiple risk factors for atherosclerotic disease but at this time does not have any singh anginal symptoms. She does have a systolic murmur on auscultation in the aortic area and likely may have aortic valve disease. Recommend a transthoracic echocardiogram to evaluate for systolic murmur as well as systolic and diastolic function. Agree with statin for risk factor reduction and ARB for renal protective effect while patient is diabetic. Can consider low-dose beta-ladi or a long-acting nitrate if blood pressure allows if she has recurrent atypical chest pain. Would favor invasive coronary workup in case of singh anginal symptoms or anginal equivalent symptoms or if she has significant valve disease. Discussed risk factor reduction with patient including need for smoking cessation. Dr. Botello will resume care of the patient tomorrow and follow-up on patient's transthoracic echocardiogram. Our recommendations were discussed with patient's primary care physician. - Time Time Spent: 50 to 70 Minutes Smoking Education Provided: Over 3 minutes
[2018-07-03] MEDS: INSULIN LISPRO 100 UNIT/ML 3 ML VIAL SUBCUT PRN ×2 (17:35→22:02)
[2018-07-03] MEDS: ATORVASTATIN CALCIUM 20 MG TABLET PO SCH (22:02)
[2018-07-03] MEDS: DIVALPROEX SODIUM 500 MG TAB.SR.24H PO SCH (22:03)
[2018-07-04] MEDS: METHYLPREDNISOLONE INJ 40 MG/1 ML SDV IV SCH ×2 (05:26→14:12)
[2018-07-04] MEDS: LANSOPRAZOLE 30 MG TAB.RAP.DR PO SCH (05:27)
[2018-07-04 06:03] LABS: ABSOLUTE LYMPHOCYTES (AUTO) 0.8 10^3/uL (0.5-4.7); ABSOLUTE MONOCYTES (AUTO) 0.4 10^3/uL (0.1-1.4); ABSOLUTE NEUT (AUTO) 7.2 10^3/uL (1.7-8.2); BASOPHILS % (AUTO) 0.1 % (0-2); HEMATOCRIT 36.7 % (36.0-47.0); HEMOGLOBIN 12.4 g/dL (12.0-15.5); LYMPHOCYTES % (AUTO) 9.2 % (13-45); MEAN CORPUSCULAR HEMOGLOBIN 31.1 pg (27.0-33.4); MEAN CORPUSCULAR HGB CONC 33.8 g/dL (32.0-36.0); MEAN CORPUSCULAR VOLUME 92 fl (80-97); MONOCYTES % (AUTO) 5.1 % (3-13); PLATELET COUNT 282 10^3/uL (150-450); RED BLOOD COUNT 3.98 10^6/uL (3.72-5.28); RED CELL DISTRIBUTION WIDTH 14.3 % (11.5-14.0); SEGMENTED NEUTROPHILS % (AUTO) 85.6 % (42-78); TOTAL CELLS COUNTED % (AUTO) 100 %; WHITE BLOOD COUNT 8.4 10^3/uL (4.0-10.5)
[2018-07-04 06:09] LABS: ALANINE AMINOTRANSFERASE 17 U/L (9-52); ALBUMIN 3.4 g/dL (3.5-5.0); ALKALINE PHOSPHATASE 62 U/L (38-126); ANION GAP 10 (5-19); ASPARTATE AMINO TRANSFERASE 14 U/L (14-36); BILIRUBIN,DIRECT 0.2 mg/dL (0.0-0.4); BILIRUBIN,TOTAL 0.2 mg/dL (0.2-1.3); BLOOD UREA NITROGEN 29 mg/dL (7-20); CALCIUM 9.1 mg/dL (8.4-10.2); CARBON DIOXIDE 26 mmol/L (22-30); CHLORIDE 102 mmol/L (98-107); GLUCOSE 213 mg/dL (75-110); POTASSIUM 4.5 mmol/L (3.6-5.0); SODIUM 138.4 mmol/L (137-145); TOTAL PROTEIN 5.9 g/dL (6.3-8.2)
--- NOTE | 2018-07-04 07:24 | EKG REPORT ---
SEVERITY:- ABNORMAL ECG - SINUS RHYTHM PROBABLE LEFT ATRIAL ABNORMALITY CONSIDER ANTEROSEPTAL INFARCT : Confirmed by: Alana Botello MD 04-Jul-2018 07:23:30
[2018-07-04] MEDS ORDERED: LEVOFLOXACIN 750 MG/D5W RTU 750 MG/150 ML RTUPB IV SCH (10:00)
[2018-07-04] MEDS: SITAGLIPTIN PHOSPHATE 50 MG TABLET PO SCH (10:53)
[2018-07-04] MEDS: ENOXAPARIN SODIUM INJ 40 MG/0.4 ML DISP.SYRIN SUBCUT SCH (10:53)
[2018-07-04] MEDS: CLOPIDOGREL BISULFATE 75 MG TABLET PO SCH (10:53)
[2018-07-04] MEDS: AMANTADINE HCL 100 MG CAPSULE PO SCH (10:53)
[2018-07-04] MEDS: GLIMEPIRIDE 1 MG TABLET PO SCH (10:53)
[2018-07-04] MEDS: RAMIPRIL 2.5 MG CAPSULE PO SCH (10:54)
[2018-07-04] MEDS: LEVOFLOXACIN 750 MG/D5W RTU 750 MG/150 ML RTUPB IV SCH (16:11)
[2018-07-04 18:40] VITALS: BP 114/43
--- NOTE | 2018-07-04 20:44 | PDOC DISCHARGE SUMMARY ---
General - Admit/Disc Date/PCP Admission Date/Primary Care Provider: 07/01/18 15:36 EMIGDIO SAMSON MD Discharge Date: 07/04/18 - Discharge Diagnosis (1) Chest pain Is this a current diagnosis for this admission?: Yes (2) Chronic obstructive pulmonary disease Is this a current diagnosis for this admission?: Yes (3) Type 2 diabetes mellitus Is this a current diagnosis for this admission?: Yes (4) Bipolar 1 disorder, depressed Is this a current diagnosis for this admission?: Yes (5) E-coli UTI Is this a current diagnosis for this admission?: Yes - Additional Information Resuscitation Status: Full Code Discharge Diet: Cardiac, Diabetic Discharge Activity: Activity As Tolerated, Balance Activity w/Rest Prescriptions: Albuterol Sulfate [Proair Hfa Inhalation Aerosol 8.5 gm Mdi] 1 puff IH Q4 PRN #1 mdi PRN Reason: Fluticasone/Umeclidin/Vilanter [Trelegy 100-62.5-25 Mcg Ellipta 14 Dose/Dpi] 14 inh IH DAILY #2 inhaler Home Medications: Amantadine HCl [Amantadine] 100 mg PO BID 12/06/16 Atorvastatin Calcium [Lipitor 20 mg Tablet] 20 mg PO QHS 12/06/16 Canagliflozin/Metformin HCl [Invokamet 50-500 mg Tablet] 1 tab PO BIDACBS 12/06/16 Divalproex Sodium [Divalproex Sodium ER] 1,000 mg PO QHS 12/06/16 Esomeprazole Mag Trihydrate [Nexium] 40 mg PO DAILY 12/06/16 Invega Sustenna 117mg/ 0.75ml 117 mg IM [id number] 12/06/16 Ramipril [Altace 2.5 mg Capsule] 2.5 mg PO DAILY 12/06/16 Sitagliptin Phosphate [Januvia 50 mg Tablet] 50 mg PO BID 12/06/16 Glimepiride [Amaryl] 2 mg PO DAILY 07/01/18 Albuterol Sulfate [Proair Hfa Inhalation Aerosol 8.5 gm Mdi] 1 puff IH Q4 PRN #1 mdi 07/04/18 Aspirin [Ecotrin 81 mg EC Tablet] 81 mg PO DAILY 07/04/18 Fluticasone/Umeclidin/Vilanter [Trelegy 100-62.5-25 Mcg Ellipta 14 Dose/Dpi] 14 inh IH DAILY #2 inhaler 07/04/18 History of Present Illness History of Present Illness: JENNI BETTENCOURT is a 72 year old female, She came to the office for evaluation of chest pain, the chest pain is left-sided, it has a tightness quality to it, the pain is not provoked by activity or emotion, she also com [place] of cough, the cough is dry. Because she has multiple risk factors for ischemic heart disease, she has type 2 diabetes mellitus, long history of tobacco use, hypertension, and suspected underlying coronary artery disease, a twelve-lead EKG was done in the office, it demonstrated sinus rhythm with Q wave in V1 to V3, because of her risk factors and the fact that she has chest pain I felt the best plan will be to admit to the hospital for evaluation and management, no bed was available so patient was directed to the emergency room. Hospital Course Hospital Course: Patient was admitted for the management of chest pain, acute COPD exacerbation and E. coli UTI. 3 sets of cardiac enzymes was negative for acute NE she underwent Lexiscan Cardiolite stress test which demonstrates no acute reversibility but the TID ratio was abnormal, she was seen in consultation by cardiology, she has a systolic murmur 2D echo was done today, she was seen by Dr Arthur Botello. Patient wants to go home today the final plan regarding the chest pain is for patient to follow with Dr. Botello outpatient to determine next plan of care she may require catheterization with or without aortic valve replacement therapy. The COPD exacerbation was treated with IV Solu-Medrol and bronchodilators for the E. coli UTI she received Levaquin. Physical Exam Vital Signs: Temp Pulse Resp BP Pulse Ox 98.5 F 67 16 114/43 L 99 07/04/18 18:38 07/04/18 18:38 07/04/18 18:38 07/04/18 18:38 07/04/18 18:38 Intake & Output 07/03/18 07/04/18 07/05/18 06:59 06:59 06:59 Intake Total 615 1478 355 Balance 615 1478 355 Weight 58 kg 57.4 kg General appearance: PRESENT: no acute distress, well-developed, well-nourished Head exam: PRESENT: atraumatic, normocephalic Eye exam: PRESENT: conjunctiva pink, EOMI, PERRLA Ear exam: PRESENT: normal external ear exam Mouth exam: PRESENT: moist, tongue midline Neck exam: PRESENT: full ROM Respiratory exam: PRESENT: clear to auscultation marcela Cardiovascular exam: PRESENT: RRR, +S1, +S2 Pulses: PRESENT: normal dorsalis pedis pul, +2 pedal pulses bilateral Vascular exam: PRESENT: normal capillary refill GI/Abdominal exam: PRESENT: normal bowel sounds, soft Rectal exam: PRESENT: deferred Neurological exam: PRESENT: alert, awake, oriented to person, oriented to place, oriented to time, oriented to situation, CN II-XII grossly intact Psychiatric exam: PRESENT: appropriate affect, normal mood Skin exam: PRESENT: dry, intact, warm Results Laboratory Results: 07/04/18 04:40 07/04/18 04:40 07/04/18 07/04/18 04:40 04:40 WBC 8.4 RBC 3.98 Hgb 12.4 Hct 36.7 MCV 92 MCH 31.1 MCHC 33.8 RDW 14.3 H Plt Count 282 Seg Neutrophils % 85.6 H Lymphocytes % 9.2 L Monocytes % 5.1 Eosinophils % 0.0 Basophils % 0.1 Absolute Neutrophils 7.2 Absolute Lymphocytes 0.8 Absolute Monocytes 0.4 Absolute Eosinophils 0.0 Absolute Basophils 0.0 Sodium 138.4 Potassium 4.5 Chloride 102 Carbon Dioxide 26 Anion Gap 10 BUN 29 H Creatinine 0.51 L Est GFR ( Amer) > 60 Est GFR (Non-Af Amer) > 60 Glucose 213 H Calcium 9.1 Total Bilirubin 0.2 AST 14 ALT 17 Alkaline Phosphatase 62 Total Protein 5.9 L Albumin 3.4 L 07/02/18 09:22 Clean Catch Midstream Urine Culture - Final Escherichia Coli 07/01/18 07/01/18 07/01/18 17:43 17:43 21:00 Creatine Kinase 41 31 CK-MB (CK-2) 1.26 Troponin I < 0.012 07/01/18 07/02/18 07/02/18 21:00 03:10 03:10 Creatine Kinase 23 L CK-MB (CK-2) 1.14 0.96 Troponin I < 0.012 < 0.012 07/02/18 07/02/18 09:10 09:10 Creatine Kinase 24 L CK-MB (CK-2) 0.98 Troponin I < 0.012 Impressions: Chest X-Ray 07/01/18 17:14 IMPRESSION: NO ACUTE RADIOGRAPHIC FINDING IN THE CHEST. Chest CT 07/02/18 00:00 IMPRESSION: No acute infiltrates. Heavily calcified coronary arteries and aortic valve Qualifiers - * PATIENT BEING DISCHARGED WITH ANY OF THE FOLLOWING DIAGNOSIS: No
--- NOTE | 2018-07-04 21:20 | XCELERA REPORT ---
[address] [address] Transthoracic Echocardiogram Report Name: JENNI BETTENCOURT Age: 72 yrs Gender: Female : 1945 Patient Status: Inpatient Patient Location: [address] [place] [address] Study Date: 07/04/2018 11:42 AM Procedure: A two-dimensional transthoracic echocardiogram with color flow and Doppler was performed. Study Quality: Fair. Reason For Study: SYSTOLIC MURMUR History: SYSTOLIC MURMUR. Ordering Physician: EMIGDIO SAMSON Performed By: Ami Woodard Interpretation Summary The left ventricle is normal in size. There is mild concentric left ventricular hypertrophy. LV EF is 65% The left ventricular ejection fraction is normal. Doppler measurements suggest impaired left ventricular relaxation, which is associated with grade I/IV or mild diastolic dysfunction The left ventricular wall motion is normal. There is no thrombus. There is no ventricular septal defect visualized. The right ventricle is normal in size and function. The right atrium is normal. The left atrium is mildly dilated. The interatrial septum is intact with no evidence for an atrial septal defect. There is no Doppler evidence for an interatrial shunt There is mild to moderate mitral annular calcification. There is no evidence of mitral valve prolapse. There is no vegetation seen on the mitral valve. There is no mitral valve stenosis. There is a trace amount of mitral regurgitation There is no aortic valvular vegetation. There is mild aortic stenosis There is a peak gradient of 26.5 mm of Hg. There is no LVOT obstruction. No hemodynamically significant valvular aortic stenosis. No aortic regurgitation is present. There is no tricuspid stenosis. There is a trace amount of tricuspid regurgitation Unable to calculate RVSP due lack of TR jet. There is no pulmonic valvular stenosis. There is no pericardial effusion. MMode/2D Measurements & Calculations RVDd: 3.1 cm LVIDd: 3.6 cm FS: 35.1 % Ao root diam: 3.1 cm IVSd: 1.2 cm LVIDs: 2.3 cm EDV(Teich): 55.1 ml Ao root area: 7.7 cm2 LVPWd: 1.6 cm ESV(Teich): 19.1 ml EF(Teich): 65.4 % Doppler Measurements & Calculations MV E max carroll: MV dec slope: Ao V2 max: LV V1 max P.8 cm/sec 257.6 cm/sec 4.2 mmHg MV A max carroll: 308.2 cm/sec2 Ao max PG: LV V1 mean P.9 cm/sec MV dec time: 26.5 mmHg 2.2 mmHg MV E/A: 0.68 0.30 sec Ao V2 mean: LV V1 max: 176.8 cm/sec 102.9 cm/sec Ao mean PG: LV V1 mean: 14.4 mmHg 68.5 cm/sec Ao V2 VTI: 57.8 cm LV V1 VTI: 21.1 cm LV dP/dt: 1428 mmHg/s PA V2 max: 72.8 cm/sec PA max P.1 mmHg Left Ventricle The left ventricle is normal in size. There is mild concentric left ventricular hypertrophy. LV EF is 65%. The left ventricular ejection fraction is normal. Doppler measurements suggest impaired left ventricular relaxation, which is associated with grade I/IV or mild diastolic dysfunction. The left ventricular wall motion is normal. There is no thrombus. There is no ventricular septal defect visualized. Right Ventricle The right ventricle is normal in size and function. Atria The right atrium is normal. The left atrium is mildly dilated. The interatrial septum is intact with no evidence for an atrial septal defect. There is no Doppler evidence for an interatrial shunt. Mitral Valve There is mild to moderate mitral annular calcification. There is no evidence of mitral valve prolapse. There is no vegetation seen on the mitral valve. There is no mitral valve stenosis. There is a trace amount of mitral regurgitation. Aortic Valve There is no aortic valvular vegetation. There is mild aortic stenosis. There is a peak gradient of 26.5 mm of Hg. There is no LVOT obstruction. No hemodynamically significant valvular aortic stenosis. No aortic regurgitation is present. Tricuspid Valve There is no tricuspid stenosis. There is a trace amount of tricuspid regurgitation. Unable to calculate RVSP due lack of TR jet. Pulmonic Valve There is no pulmonic valvular stenosis. There is no pulmonic valvular regurgitation. Great Vessels The aortic root is normal size. Effusions There is no pericardial effusion. : EMIGDIO SAMSON > Alana Botello
== END 2018-07-04 18:59 | disposition home or self-care (01) | DRG 313 ==
LOC: ER 14:34 → EH 15:36 → 3W 07-02 19:20
PROVIDERS: ADMIT Internal Medicine; ATTEND Internal Medicine
DX: R07.9 Chest pain, unspecified (principal); J44.1 Chronic obstructive pulmonary disease with (acute) exacerbation; N39.0 Urinary tract infection, site not specified; B96.20 Unspecified Escherichia coli [E. coli] as the cause of diseases classified elsewhere; E11.42 Type 2 diabetes mellitus with diabetic polyneuropathy; F31.9 Bipolar disorder, unspecified; E78.5 Hyperlipidemia, unspecified; M19.90 Unspecified osteoarthritis, unspecified site; Z79.899 Other long term (current) drug therapy; F17.210 Nicotine dependence, cigarettes, uncomplicated; Z90.710 Acquired absence of both cervix and uterus; Z88.0 Allergy status to penicillin; Z88.8 Allergy status to other drugs, medicaments and biological substances
CPT/HCPCS: 36415; 71045; 71250; 78452; 80048; 80053; 80061; 80076; 80307; 81001; 82140; 82150; 82550; 82553; 82962; 83036; 83690; 83735; 84100; 84439; 84443; 84484; 85025; 85379; 85610; 85730; 87040; 87077; 87086; 87088; 87186; 93005; 93010; 93017; 93306; 99285; A9500; J1650; J1815; J1956; J2785; J2920; J3490; Q9969

== ENCOUNTER → 2018-07-22 | Outpatient (CLI) | payer MEDICARE, MEDICAID ==
--- NOTE | 2018-07-22 12:12 | WOMENS IMAGING REPORT ---
EXAM DESCRIPTION: 3D SCREENING MAMMO BILAT COMPLETED DATE/TIME: 07/22/2018 11:15 am REASON FOR STUDY: ROUTINE BILTERAL SCREENING;Z12.31 Z12.31 ENCNTR SCREEN MAMMOGRAM FOR MALIGNANT NE OPLASM OF VIRGILIO COMPARISON: 2008- 2017 TECHNIQUE: Standard craniocaudal and mediolateral oblique views of each breast recorded using digita l acquisition and breast tomosynthesis. LIMITATIONS: None. FINDINGS: Findings present which are benign by mammographic criteria. No suspicious masses, calcifi cations or architectural distortion. Pertinent benign findings: Stable calcifications. Read with the assistance of CAD. .[facility] - R2 Cenova Version 1.3 .[facility] - R2 Cenova Version 2.[address] - R2 Cenova Version 2.4 .[facility] - R2 Cenova Version 2.4 .[facility] - R2 [employer] Hair Version 9.2 Benign mammographic findings may include one or more of the following: Smooth masses, popcorn/rim/co arse calcifications, asymmetries, post-procedure changes, and lesions with long-standing stability. IMPRESSION: BENIGN MAMMOGRAPHIC FINDINGS. BIRADS 2 BREAST DENSITY: b. There are scattered areas of fibroglandular density. BIRAD: 2 BENIGN FINDING(S) RECOMMENDATION: RECOMMENDATION: ROUTINE SCREENING COMMENT: The patient has been notified of the results by letter per SA requirements. Additional no tification policies are in place for contacting patient with suspicious or incomplete findings. Quality ID #[id number]: The [employer] recommends an annual screening mammogram for women aged 40 years or over. This facility utilizes a reminder system to ensure that all patients receive reminder letters, and/or direct phone calls for appointments. This includes reminders for routine scr eening mammograms, diagnostic mammograms, or other Breast Imaging Interventions when appropriate. Th is patient will be placed in the appropriate reminder system. The [employer] (ACR) has developed recommendations for screening MRI of the breast s in certain patient populations, to be used in conjunction with mammography. Breast MRI surveillanc e may be appropriate for women with more than 20% lifetime risk of developing breast cancer as deter mined by genetic testing, significant family history of the disease, or history of mantle radiation f or Hodgkins Disease. ACR Practice Guidelines 2008. DBT Technology DBT is a type of tomographic mammography. With conventional mammography, overlapping breast tissue ma y make lesions difficult to detect, even with good compression. DBT uses an x-ray tube that rotates a round the breast, taking images at different angles. These images are then combined to create thin sl ices of the breast that the radiologist can view as a 3D reconstruction. The [employer] unit can perform full-field digital mammograms (2D imaging); or DBT (3D imaging); or both, in a combination mode that quickly performs both the mammogram and the tomosynthesis scan while the breast is still compressed. PQRS 6045F: Fluoroscopic imaging is not utilized for breast tomosynthesis. TECHNICAL DOCUMENTATION: FINDING NUMBER: (1) ASSESSMENT: (1) JOB ID: [id number] [employer]- All Rights Reserved Reading location - IP/workstation name: [email or web address]
== END ==
LOC: WI 10:25
PROVIDERS: ATTEND Internal Medicine
DX: Z12.31 Encounter for screening mammogram for malignant neoplasm of breast (principal)
CPT/HCPCS: 77063; 77067

== ENCOUNTER → 2019-11-02 | Outpatient (CLI) | payer MEDICARE, MEDICAID ==
[2019-11-02 15:35] LABS: ABSOLUTE LYMPHOCYTES (AUTO) 1.1 10^3/uL (0.5-4.7); ABSOLUTE MONOCYTES (AUTO) 0.4 10^3/uL (0.1-1.4); ABSOLUTE NEUT (AUTO) 4.4 10^3/uL (1.7-8.2); BASOPHILS % (AUTO) 0.4 % (0-2); EOSINOPHILS % (AUTO) 0.4 % (0-6); HEMATOCRIT 37.8 % (36.0-47.0); LYMPHOCYTES % (AUTO) 18.6 % (13-45); MEAN CORPUSCULAR HGB CONC 34.5 g/dL (32.0-36.0); MEAN CORPUSCULAR VOLUME 93 fl (80-97); MONOCYTES % (AUTO) 7.3 % (3-13); PLATELET COUNT 217 10^3/uL (150-450); RED BLOOD COUNT 4.07 10^6/uL (3.72-5.28); RED CELL DISTRIBUTION WIDTH 15.1 % (11.5-14.0); SEGMENTED NEUTROPHILS % (AUTO) 73.3 % (42-78); TOTAL CELLS COUNTED % (AUTO) 100 %
[2019-11-02 15:52] LABS: ALBUMIN 3.8 g/dL (3.5-5.0); ALKALINE PHOSPHATASE 67 U/L (38-126); ASPARTATE AMINO TRANSFERASE 19 U/L (14-36); BILIRUBIN,TOTAL 0.2 mg/dL (0.2-1.3); TOTAL PROTEIN 6.3 g/dL (6.3-8.2)
== END ==
LOC: OD 15:01
PROVIDERS: ATTEND Psychiatry & Neurology Psychiatry
DX: F25.9 Schizoaffective disorder, unspecified (principal); Z79.899 Other long term (current) drug therapy
CPT/HCPCS: 36415; 80076; 80164; 82140; 85025